=== PATIENT | female | born 1990 | race Caucasian/White ===

== ENCOUNTER 2017-03-22 13:39 | Emergency (ER) | payer OTHER ==
--- NOTE | 2017-03-22 15:59 | ED CLINICAL REPORT ---
Clinical Report - Physicians/Mid Levels [facility] [address] [place] [address] 03/22/2017 13:41 Patient: MALCOM FREEMAN Time Seen: 14:02; initial patient contact, initial documentation, patient care assumed. Arrived- By private vehicle. Historian- patient. HISTORY OF PRESENT ILLNESS Chief Complaint: VOMITING. This started about 4 weeks ago and is still present. It was gradual in onset and has been intermittent. The patient has had nausea and constipation. She has had vomiting. The vomiting has occurred several times and has been bilious. No feculent emesis, blood-tinged emesis, coffee-grounds emesis, frankly bloody emesis or unusually dark emesis. No diarrhea, black stools or bloody stools. She has had mild, intermittent abdominal pain (pain comes on with vomiting). The pain is described as located in the upper abdomen. Last bowel movement: a few days ago- thursday. The illness is described as moderate. (says she has been ill since started, and recently her dr has been slowly decreasing her depression/psych meds because they want her off them for the , due to side effects, she thinks she is withdrawing). Similar symptoms previously: None. Recent medical care: The patient was seen recently in the office. ( saw her dr last week and meds were decreased). REVIEW OF SYSTEMS No fever, dark urine, abnormal bleeding, chest pain or difficulty breathing. No fainting episodes. She has had difficulty with urination (decreased uop). No burning or pain with urination or difficulty during or after urination. No urgency or frequency of urination. Currently : In 1st trimester. G 2. P 1. All systems otherwise negative, except as recorded above. PAST HISTORY See nurses notes. PROBLEMS: Depressive disorder . Fibromyalgia. . --13:58 Oralia Baptiste R.N. ADDITIONAL SURGERIES: Carpal Tunnel Surgery. --13:58 Oralia Baptiste R.N. SOCIAL HISTORY Never smoker. Occasional alcohol use. History of occasional drug use: marijuana. Recently used drugs days ago. Is not under influence in ED. No recent travel. Is a local resident. FAMILY HISTORY Negative. ADDITIONAL NOTES The nursing notes have been reviewed with agreement regarding the chief complaint, HPI, ROS, PMH and patient medications and allergies. PHYSICAL EXAM Vital Signs: 03/22/2017 13:55 BP: 152/71. HR: 82. RR: 20. O2 saturation: 100%. Temp: 98.2 F. Pain level now: 10. Have been reviewed as normal and appear to be correct. Appearance: Alert. Oriented X3. No acute distress. Eyes: Pupils equal, round and reactive to light. Eyes normal inspection. ENT: Pharynx normal. Neck: Normal inspection. Neck supple. CVS: Normal heart rate and rhythm. Heart sounds normal. Pulses normal. Respiratory: No respiratory distress. Breath sounds normal. Abdomen: Soft and nontender. Bowel sounds normal. No organomegaly. No mass. Back: Normal inspection. Skin: Skin warm and dry. Normal skin color. No rash. Normal skin turgor. Extremities: Extremities exhibit normal ROM. No lower extremity edema. Neuro: Oriented X 3. No motor deficit. No sensory deficit. LABS, X-RAYS, AND EKG Laboratory Tests: UA-Culture if indicated: (AUDIE: 03/22/2017 15:20) ( [facility] [place] 03/22/2017 15:50) IP Test Result Flag Units (Reference) URINE COLOR YELLOW URINE APPEARANCE CLEAR URINE GLUCOSE NEGATIVE (NEGATIVE) URINE KETONE 3+ (NEGATIVE) URINE SPECIFIC GRAVITY 1.025 (1.010-1.030) URINE PH 6.0 (5.0-8.0) URINE PROTEIN TRACE (NEGATIVE) URINE UROBILINOGEN 0.2 EU/dL (0.2-1.0) URINE NITRITE NEGATIVE (NEGATIVE) URINE BLOOD NEGATIVE (NEGATIVE) URINE LEUK ESTERASE NEGATIVE (NEGATIVE) CBC w Diff: (AUDIE: 03/22/2017 14:10) ( MsgRcvd 03/22/2017 14:30) Final results Test Result Flag Units (Reference) WHITE BLOOD COUNT 10.7 K/uL (4.5-11.5) RED BLOOD COUNT 5.15 M/uL (4.00-5.20) HEMOGLOBIN 12.3 gm/dL (12.0-16.0) HEMATOCRIT 38.7 % (36.0-46.0) MEAN CELL VOLUME 75 L fL (80-100) MEAN CORPUSCULAR HGB 24 L pg (26-34) MEAN CORPUSCULAR HGB CONC 32 g/dL (31-37) RED CELL DISTRIBUTION WIDTH 14.8 % (11.6-14.8) PLATELET COUNT 321 K/uL (150-400) NEUTROPHIL % 81.3 H % (50-75) LYMPH % 13.3 L % (25-40) MONO % 4.5 % (3-14) EOSINOPHIL % 0.8 % (0-4) BASOPHIL % 0.1 % (0-2) CMP: (AUDIE: 03/22/2017 14:10) ( MsgRcvd 03/22/2017 15:12) Final results Test Result Flag Units (Reference) GLUCOSE 88 mg/dL (70-110) BUN 11 mg/dL (7-18) CREATININE 0.8 mg/dL (0.6-1.3) Estimated GFR >60 mL/min Estimated GFR- >60 mL/min Note: Persistent reduction over 3 months in eGFR<60 mL/min/1.73 m2 defines CKD. Patients with eGFR values>=60 mL/min/1.73 m2 may also have CKD if evidence ofpersistent proteinuria. Additional information may be foundat www.[email or web address].org. SODIUM 139 mmol/L (136-145) POTASSIUM 4.1 mmol/L (3.5-5.1) CHLORIDE 102 mmol/L (98-107) CARBON DIOXIDE 22 mmol/L (21-32) CALCIUM 9.2 mg/dL (8.5-10.1) TOTAL PROTEIN 8.2 g/dL (6.4-8.2) ALBUMIN 3.7 g/dL (3.3-5.0) BILIRUBIN, TOTAL 0.4 mg/dL (0.0-1.0) ALKALINE PHOSPHATASE 87 U/L (46-116) AST (SGOT) 21 U/L (15-37) ALT (SGPT) 50 U/L (12-78) LIPASE 113 U/L (73-393) AMYLASE 41 U/L (25-115) BETA HCG, QUANTITATIVE 77476 mIU/mL REFERENCE RANGE:Adult Males: <2 mIU/mLNon- Females: <6 mIU/mL Females:Approximate Approximate hCGGestational Age Range (mIU/mL) 0-1 week 0-501-2 weeks 40-3002-3 weeks 100-59990-5 weeks 500-34689-9 months 5,000-200,0002-3 months 10,000-100,0002nd trimester 3,000-50,0003rd trimester 1,000-50,000 . PROGRESS AND PROCEDURES Patient counseled in person regarding the patient's stable condition, test results and diagnosis. 15:51. Differential Diagnosis: I considered gastritis, peptic ulcer disease, gastroesophageal reflux disease, gastroparesis, Crohn's disease, ulcerative colitis, small bowel obstruction, colonic obstruction, colon cancer, gastroenteritis, cholecystitis, pancreatitis, viral syndrome, enterocolitis, urinary tract infection, hepatitis, sepsis, and psychogenic etiology as a possible cause of vomiting in this patient. This is a partial list of diagnoses considered. Above considerations are based on history, physical exam, reassessment and laboratory data. Differential diagnosis was discussed with patient. Disposition: Discharged home in good and improved condition (15:59). Condition: good and stable. CLINICAL IMPRESSION Intractable vomiting with nausea and dehydration. No volume depletion. Not bilious. INSTRUCTIONS Take clear liquids only (frequent sips) for the next 24 hours until better. May continue medications with sips only. Advance diet as tolerated. Avoid. Warnings: GENERAL WARNINGS: Return or contact your physician immediately if your condition worsens or changes unexpectedly, if not improving as expected, or if other problems arise. SPECIFICALLY, return if you develop pain in the abdomen or pelvis, fever, the inability to keep fluids down, blood in vomitus, blood in diarrhea, fainting or lightheadedness. Prescription Medications: Reglan 10 mg tablets: take 1 orally every 6 hours as needed for nausea or vomiting. Dispense fifteen (15). No refills. Follow-up: Follow up with your doctor in about two days even if well. Call for an appointment. Summary of care provided to patient. Understanding of the discharge instructions verbalized by patient. (Electronically signed by Ronna Cottrell A.R.N.P. 03/22/2017 16:33)
--- NOTE | 2017-03-22 15:59 | ED ORDER SUMMARY ---
..... Patient: MALCOM FREEMAN OrderSheet [facility] VisitID: [id number] [place] [address] 26y, F Registration Date/Time: 03/22/2017 ORDER SHEET Weight: 102.0 kg (stated) Allergies: Latex GENERAL ORDERS: CBC w Diff Urgent (14:12 03/22/2017 HBivens A.R.N.P.) (Ack 14:14 PWeiler ER Tech1) (14:15 MWinterer R.N.) CMP Urgent (14:12 03/22/2017 HBivens A.R.N.P.) (Ack 14:14 PWeiler ER Tech1) (14:15 MWinterer R.N.) UA-Culture if indicated Urgent (14:12 03/22/2017 HBivens A.R.N.P.) (Ack 14:14 PWeiler ER Tech1) (15:37 LNations ER Tech1) Amylase Urgent (14:12 03/22/2017 HBivens A.R.N.P.) (Ack 14:14 PWeiler ER Tech1) (14:15 MWinterer R.N.) Lipase Urgent (14:12 03/22/2017 HBivens A.R.N.P.) (Ack 14:14 PWeiler ER Tech1) (14:15 MWinterer R.N.) Serum Quantitative Urgent (14:12 03/22/2017 HBivens A.R.N.P.) (Ack 14:14 PWeiler ER Tech1) (14:15 MWinterer R.N.) MEDICATION ORDERS: IV FLUIDS: IV NS : initial bolus 1000 mL (1000 mL/hr), then none - (NOW) (14:12 03/22/2017 HBivens A.R.N.P.) (14:15 MWinterer R.N.) Zofran IV 4 mg (NOW) (14:03/22/2017 HBivens A.R.N.P.) (Ack 14:15 MWinterer R.N.) (14:17 MWinterer R.N.) IV Saline Lock (14:03/22/2017 HBivens A.R.N.P.) (14:14 keesha R.N.) Reglan IV 10 mg (NOW) (15:35 03/22/2017 HBivens A.R.N.P.) (Ack 16:01 SRoberts R.N.) (16:02 SRoberts R.N.) ORDER SHEET NOTES: [Electronically signed by Oralia Baptiste R.N. (16:12 03/22/2017)] [Electronically signed by Ronna CottrellR.N.P. (16:33 03/22/2017)] [Electronically locked/signed by Oralia Baptiste R.N. (16:12 03/22/2017)]
--- NOTE | 2017-03-22 15:59 | ED NURSING NOTES ---
Clinical Report - Nurses [facility] [address] [place] [address] 03/22/2017 13:41 Patient: MALCOM FREEMAN TRIAGE Triage time 13:55. Acuity: LEVEL 3. Chief Complaint: ABDOMINAL PAIN, NAUSEA and VOMITING and CHILLS and DECREASED VOIDING (Weaning off antidepressant.). Alert. No acute distress. SEPSIS SCREEN: Sepsis Screen: negative. Negative (no infection suspected/documented). LALO COMA SCORE: Lalo Coma Scale: 15- eyes open spontaneously (4); best verbal response- oriented x 4 (5); best motor response- obeys commands (6). --14:03 Oralia Baptiste R.N. 13:55 03/22/17. BP: 152/71. HR: 82. RR: 20. O2 saturation: 100%. Temp: 98.2 F. Pain level now: 03/02. --14:03 Oralia Baptiste R.N. Weight: 102 kg stated. Height/Length: 64 inches Per Patient. BMI: 38.6. --14:01 Oralia Baptiste R.N. Medications Zofran prn . --13:56 Oralia Baptiste R.N. VitB6 . --13:57 Oralia Baptiste R.N. Medication/allergy information source: the patient. --14:03 Oralia Baptiste R.N. Allergies Latex. --13:57 Oralia Baptiste R.N. History Arrived by private vehicle. Historian: patient and family. Accompanied by family. Primary physician ([facility]). This is a new problem and onset was gradual. (4 weeks ago 5-6 days ago, cut effecor in half, nausea and vomiting has gotten worse.). She has had nausea and vomiting. She has had constipation (last thu). She has had intermittent abdominal pain (with the vomiting). The pain is described as located in the upper abdomen. Treatment MEMORANDUM STATEMENT CLERK: (zofran). PAST MEDICAL HX: Immunizations: up-to-date. Last normal menstrual period- Nov 06 EDt. 2. Para 1. Abortions 0. SOCIAL HX: Never smoker. History of drug use: marijuana. Recently used drugs days ago. No alcohol use. No recent travel. No known contact with a sick individual. ABUSE ASSESSMENT: No report of abuse. FALL RISK ASSESSMENT: Fall risk assessment completed. No fall risk identified. NUTRITIONAL RISK ASSESSMENT: The nutritional risk assessment revealed no deficiencies. FUNCTIONAL ASSESSMENT: Functional assessment: no impairments noted. LEARNING NEEDS ASSESSMENT: The learning needs assessment revealed no barriers. --14:03 Oralia Baptiste R.N. PROBLEMS: Depressive disorder . Fibromyalgia. UC. --13:58 Oralia Baptiste R.N. ADDITIONAL SURGERIES: Carpal Tunnel Surgery. --13:58 Oralia Baptiste R.N. Interventions ID band on patient. To room. --14:03 Oralia Baptiste R.N. PHYSICAL ASSESSMENT Ambulatory to room. Patient gowned. GENERAL / NEURO / PSYCH: Alert. Oriented X 4. Appears anxious. HEENT: Mucous membranes are pink. RESPIRATORY: Respirations not labored. CVS: Capillary refill less than 2 seconds. GI / : The patient has had nausea. Abdominal tenderness in the upper abdomen. No emesis noted. ( "No voiding since thursday"). SKIN: Skin is warm and dry. --14:03 Oralia Baptiste R.N. NURSING PROGRESS NOTES Patient gowned. Head of bed elevated. Two patient identifiers checked. Call light placed in reach. Side rails up x 1. Bed placed in lowest position. Brakes of bed on. Patient ready for evaluation. --14:04 Oralia Baptiste R.N. 14:14 03/22/2017 Site #1 started via IV in the right antecubital space with an 20g angiocath, with aseptic technique and good blood return; one attempt. Blood drawn: rainbow set. Labeled in the presence of the patient and sent to the lab. --14:14 Aixa Sharp R.N. 14:15 03/22/2017 Started bag #1 1000 mL IV Fluids IV NS (Saline); at 999 mL/hr over 1 hour(s) via site #1 via IV pump. Allergies verified and confirmed 5 rights. IV patency established. IV site checked: no pain, redness, or swelling. IV flushed thoroughly pre- and post-medication administration. --14:15 Aixa Sharp R.N. 14:17 03/22/2017 Zofran (Ondansetron HCl) IVP 4 mg given over 1 minute(s) via site #1. Allergies verified and confirmed 5 rights. IV patency established. IV site checked: no pain, redness, or swelling. IV flushed thoroughly pre- and post-medication administration. IVP given by RN. --14:17 Aixa Sharp R.N. 15:15 03/22/2017 IV Fluids IV NS Discontinued: bag #1 infused. Total amount infused: 1000 mL. IV patency established. IV site checked: no pain, redness, or swelling. IV flushed thoroughly. --15:15 Oralia Baptiste R.N. 15:16 03/22/2017 Zofran IVP Response: pain is improving. Symptoms have improved the patient feels better. --15:16 Oralia Baptiste R.N. Patient ID band checked for patient name and birthdate: patient confirmed. Instructions provided to collect clean catch urine and patient verbalized understanding. Clean catch urine collected with return of jack-colored urine; odor is normal; sample sent to lab for urinalysis and culture. Specimen labeled in the presence of the patient. --15:37 Adelina Longoria ER Tech1 15:35 03/22/2017 Reglan (Metoclopramide HCl) IVP 10 mg given. via site #1. Allergies verified and confirmed 5 rights. IV patency established. IV site checked: no pain, redness, or swelling. IV flushed thoroughly pre- and post-medication administration. IVP given by RN. --16:02 Oralia Baptiste R.N. DISPOSITION / DISCHARGE Condition at departure: improved. No learning barriers present. Discharge instructions provided and reviewed with the patient. Reviewed medication(s) side effects, precautions, dosing and course information. Prescription(s) given to the patient. Patient verbalized understanding. Written instructions provided in Pashto. The patient was discharged home and accompanied by spouse. She left the Emergency Department ambulatory and via private vehicle. Spouse driving. Medication list reviewed and validated. --16:11 Oralia Baptiste R.N. 16:10 03/22/17. BP: 111/58. HR: 65. RR: 18. O2 saturation: 98% on room air. Temp: deferred. Pain level now: 12/02. 15:09 03/22/17. BP: 113/59. HR: 72. RR: 20. O2 saturation: 99% on room air. Pain level now: 01/02. 13:55 03/22/17. BP: 152/71. HR: 82. RR: 20. O2 saturation: 100%. Temp: 98.2 F. Pain level now: 03/02. --16:11 Oralia Baptiste R.N. Locked/Released at 03/22/2017 16:12 by Oralia Baptiste R.N.
--- NOTE | 2017-03-22 15:59 | ED ORDER SUMMARY ---
..... Patient: MALCOM FREEMAN OrderSheet [facility] VisitID: [id number] [place] [address] 26y, F Registration Date/Time: 03/22/2017 ORDER SHEET Weight: 102.0 kg (stated) Allergies: Latex GENERAL ORDERS: CBC w Diff Urgent (14:12 03/22/2017 HBivens A.R.N.P.) (Ack 14:14 PWeiler ER Tech1) (14:15 MWinterer R.N.) CMP Urgent (14:12 03/22/2017 HBivens A.R.N.P.) (Ack 14:14 PWeiler ER Tech1) (14:15 MWinterer R.N.) UA-Culture if indicated Urgent (14:12 03/22/2017 HBivens A.R.N.P.) (Ack 14:14 PWeiler ER Tech1) (15:37 LNations ER Tech1) Amylase Urgent (14:12 03/22/2017 HBivens A.R.N.P.) (Ack 14:14 PWeiler ER Tech1) (14:15 MWinterer R.N.) Lipase Urgent (14:12 03/22/2017 HBivens A.R.N.P.) (Ack 14:14 PWeiler ER Tech1) (14:15 MWinterer R.N.) Serum Quantitative Urgent (14:12 03/22/2017 HBivens A.R.N.P.) (Ack 14:14 PWeiler ER Tech1) (14:15 MWinterer R.N.) MEDICATION ORDERS: IV FLUIDS: IV NS : initial bolus 1000 mL (1000 mL/hr), then none - (NOW) (14:12 03/22/2017 HBivens A.R.N.P.) (14:15 MWinterer R.N.) Zofran IV 4 mg (NOW) (14:03/22/2017 HBivens A.R.N.P.) (Ack 14:15 MWinterer R.N.) (14:17 MWinterer R.N.) IV Saline Lock (14:03/22/2017 HBivens A.R.N.P.) (14:14 keesha R.N.) Reglan IV 10 mg (NOW) (15:35 03/22/2017 HBivens A.R.N.P.) (Ack 16:01 SRoberts R.N.) (16:02 SRoberts R.N.) ORDER SHEET NOTES: [Electronically signed by Oralia Baptiste R.N. (16:12 03/22/2017)] [Electronically signed by Ronna CottrellR.N.P. (16:33 03/22/2017)] [Electronically locked/signed by Oralia Baptiste R.N. (16:12 03/22/2017)]
--- NOTE | 2017-03-22 16:33 | ED MAR SUMMARY ---
..... Medication Administration Record [facility] [address] [place] [address] Patient: MALCOM FREEMAN Visit ID: [id number] 26y, F Weight: 102.0 kg Height/Length: 64 in BMI: 38.6 ALLERGIES: Latex Start 14:15 03/22/2017 Aixa Sharp R.N., Stop 15:15 03/22/2017 Oralia Baptiste R.N. Medication Administered: IV NS (SALINE), Dose: IV Fluids over 1 hour(s), Rate: 999 mL/hr, Dispensed: 1000 mL bag, Site: #1 right AC. Medication Ordered: IV NS : initial bolus 1000 mL (1000 mL/hr), then none - (NOW). Given 14:17 03/22/2017 Aixa Sharp R.N. Medication Administered: ZOFRAN [IVP] (ONDANSETRON HCL), Dose: 4 mg IVP over 1 minute(s), Site: #1 right AC. Medication Ordered: Zofran IV 4 mg (NOW). Given 15:35 03/22/2017 Oralia Baptiste R.N. Medication Administered: REGLAN [IVP] (METOCLOPRAMIDE HCL), Dose: 10 mg IVP, Site: #1 right AC. Medication Ordered: Reglan IV 10 mg (NOW).
--- NOTE | 2017-03-22 16:33 | ED MED RECONCILIATION SUMMARY ---
Patient: MALCOM FREEMAN Medication Reconciliation Report [facility] VisitID: [id number] [address] [place] [address] 26y, F Registration Date/Time: 03/22/2017 Weight: 102.0 kg Height/Length: 64 in. BMI: 38.6 ALLERGIES: Latex The patient's Home Medications are listed below: THE FOLLOWING MEDICATIONS NEED TO BE RECONCILED: VitB6 Zofran prn The source(s) of the original Home Medication information: patient The following Medications were given to the patient in the Emergency Department: IV NS IV Fluids bolus 0, then 999 mL/hr, administered: 03/22/2017 2:15:00 PM Zofran [IVP] IVP 4 mg, administered: 03/22/2017 2:17:00 PM Reglan [IVP] IVP 10 mg, administered: 03/22/2017 3:35:00 PM The following Medications were prescribed to the patient: Reglan 10 mg tablets: take 1 orally every 6 hours as needed for nausea or vomiting. Dispense fifteen (15). No refills. -- Ronna Cottrell A.R.N.P.
--- NOTE | 2017-03-22 16:33 | ED MED RECONCILIATION SUMMARY ---
Patient: MALCOM FREEMAN Medication Reconciliation Report [facility] VisitID: [id number] [address] [place] [address] 26y, F Registration Date/Time: 03/22/2017 Weight: 102.0 kg Height/Length: 64 in. BMI: 38.6 ALLERGIES: Latex The patient's Home Medications are listed below: THE FOLLOWING MEDICATIONS NEED TO BE RECONCILED: VitB6 Zofran prn The source(s) of the original Home Medication information: patient The following Medications were given to the patient in the Emergency Department: IV NS IV Fluids bolus 0, then 999 mL/hr, administered: 03/22/2017 2:15:00 PM Zofran [IVP] IVP 4 mg, administered: 03/22/2017 2:17:00 PM Reglan [IVP] IVP 10 mg, administered: 03/22/2017 3:35:00 PM The following Medications were prescribed to the patient: Reglan 10 mg tablets: take 1 orally every 6 hours as needed for nausea or vomiting. Dispense fifteen (15). No refills. -- Ronna Cottrell A.R.N.P.
--- NOTE | 2017-03-22 16:33 | ED MAR SUMMARY ---
..... Medication Administration Record [facility] [address] [place] [address] Patient: MALCOM FREEMAN Visit ID: [id number] 26y, F Weight: 102.0 kg Height/Length: 64 in BMI: 38.6 ALLERGIES: Latex Start 14:15 03/22/2017 Aixa Sharp R.N., Stop 15:15 03/22/2017 Oralia Baptiste R.N. Medication Administered: IV NS (SALINE), Dose: IV Fluids over 1 hour(s), Rate: 999 mL/hr, Dispensed: 1000 mL bag, Site: #1 right AC. Medication Ordered: IV NS : initial bolus 1000 mL (1000 mL/hr), then none - (NOW). Given 14:17 03/22/2017 Aixa Sharp R.N. Medication Administered: ZOFRAN [IVP] (ONDANSETRON HCL), Dose: 4 mg IVP over 1 minute(s), Site: #1 right AC. Medication Ordered: Zofran IV 4 mg (NOW). Given 15:35 03/22/2017 Oralia Baptiste R.N. Medication Administered: REGLAN [IVP] (METOCLOPRAMIDE HCL), Dose: 10 mg IVP, Site: #1 right AC. Medication Ordered: Reglan IV 10 mg (NOW).
--- NOTE | 2017-03-22 16:33 | ED DISCHARGE INSTRUCTIONS ---
Patient: MALCOM FREEMAN General Instructions [facility] VisitID: [id number] [place] [address] 26y, F Registration Date/Time: 03/22/2017 Intractable vomiting with nausea and dehydration. No volume depletion. Not bilious. INSTRUCTIONS Take clear liquids only (frequent sips) for the next 24 hours until better. May continue medications with sips only. Advance diet as tolerated. Avoid. Warnings: GENERAL WARNINGS: Return or contact your physician immediately if your condition worsens or changes unexpectedly, if not improving as expected, or if other problems arise. SPECIFICALLY, return if you develop pain in the abdomen or pelvis, fever, the inability to keep fluids down, blood in vomitus, blood in diarrhea, fainting or lightheadedness. Prescription Medications: Reglan 10 mg tablets: take 1 orally every 6 hours as needed for nausea or vomiting. Dispense fifteen (15). No refills. Follow-up: Follow up with your doctor in about two days even if well. Call for an appointment. Summary of care provided to patient. Understanding of the discharge instructions verbalized by patient. ADDITIONAL INFORMATION Vomiting [6Yr-Adult] Vomiting is a common symptom that may be due to different causes. These include gastroenteritis ("stomach flu"), food poisoning and gastritis. There are other more serious causes of vomiting which may be hard to diagnose early in the illness. Therefore, it is important to watch for the warning signs listed below. The main danger from repeated vomiting is dehydration. This is due to excess loss of water and minerals from the body. When this occurs, body fluids must be replaced. Home Care: If symptoms are severe, rest at home for the next 24 hours. You may use acetaminophen (Tylenol) or ibuprofen (Motrin, Advil) to control fever, unless another medicine was prescribed. [NOTE : If you have chronic liver or kidney disease or ever had a stomach ulcer or GI bleeding, talk with your doctor before using these medicines.] (Aspirin should never be used in anyone under 18 years of age who is ill with a fever. It may cause severe liver damage.) Avoid tobacco and alcohol use, which may worsen your symptoms. If medicines for vomiting were prescribed, take as directed. Once vomiting stops, then follow these guidelines: During The First 12-24 Hours follow the diet below: FRUIT JUICES: Apple, grape juice, clear fruit drinks, and electrolyte replacement drinks. BEVERAGES: Soft drinks without caffeine; mineral water (plain or flavored), decaffeinated tea and coffee. SOUPS: Clear broth, consomm and bouillon DESSERTS: Plain gelatin, popsicles and fruit juice bars. As you feel better, you may add 6-8 ounces of yogurt per day. During The Next 24 Hours you may add the following to the above: Hot cereal, plain toast, bread, rolls, crackers Plain noodles, rice, mashed potatoes, chicken noodle or rice soup Unsweetened canned fruit (avoid pineapple), bananas Limit caffeine and chocolate. No spices or seasonings except salt. During The Next 24 Hours Gradually resume a normal diet, as you feel better and your symptoms lessen. Follow Up with your doctor as advised if you are not improving over the next 2-3 days. Get Prompt Medical Attention if any of the following occur: Constant right-sided lower abdominal pain or increasing general abdominal pain Continued vomiting (unable to keep liquids down) for 24 hours Frequent diarrhea (more than 5 times a day); blood (red or black color) or mucus in diarrhea Reduced urine output or extreme thirst Weakness, dizziness or fainting Unusually drowsy or confused Fever of 100.4F (38C) oral or higher, not better with fever medication Yellow color of the eyes or skin Clear Liquid Diet Clear liquids are any liquid that you can see through as well as those that are very easy to digest. This is used while the body is recovering from irritation or infection of the stomach or intestinal tract. It may also be used before special procedures or surgery. This diet is to be used no more than three days. You may include the following items. Adults Adults should drink a total of 23 quarts of liquid per day. It may be easier to drink small frequent servings rather than a few large ones. Liquids can include: Fruit juices.Strained orange juice or lemonade (no pulp), apple, grape and cranberry juice, clear fruit drinks, sports drinks Beverages.Sport drinks, sodas, mineral water (plain or flavored), tea, black coffee, liquid gelatin (add twice the recommended amount of water) Soups.Clear broth, consomm, bouillon Desserts.Plain gelatin, popsicles, fruit juice bars Children Over 2 years old The following liquids are acceptable for children over age 2: Fruit juices.Strained orange juice or lemonade (no pulp), apple, grape and cranberry juice, clear fruit drinks Beverages. Sports drinks, sodas, mineral water (plain or flavored), tea, liquid gelatin (add twice the recommended amount of water) Soups. Clear broth, consomm, bouillon Desserts. Plain gelatin, popsicles, fruit juice bars Children under 2 years old Oral rehydration fluids such are available at drug stores and most grocery stores without a prescription. [place] Diet A bland diet is used for patients with an upset stomach. It consists of foods that are mild and easy to digest. It is better to eat small frequent meals rather than three large meals a day. BEVERAGES OK: Fruit juices, non-caffeinated teas and coffee, non-carbonated laughlin AVOID: Carbonated beverage, caffeinated tea and coffee, all alcoholic beverages BREAD OK: Refined white, wheat or rye bread, mikel or soda crackers, [place] toast, plain rolls, bagels AVOID: Whole-grain bread CEREAL OK: Refined cereals: cooked or ready to eat AVOID: Whole grain cereals and granola, or those containing bran, seeds or nuts DESSERTS OK: Peanut butter and all others except those to "avoid" AVOID: Chocolate, cocoa, coconut, popcorn, nuts, seeds, jam, marmalade FRUITS OK: Canned, cooked, frozen or fresh fruits without seeds or tough skin AVOID: Olives, skin and seeds of fruit MEATS OK: All fresh or preserved meat, fish and fowl AVOID: Any that are prepared with those spices to "avoid" CHEESE & EGGS OK: Eggs, cottage cheese, cream cheese, other cheeses AVOID: All cheeses made with those spices to "avoid" POTATOES & PASTA OK: Potato, rice, macaroni, noodles, spaghetti AVOID: None SOUPS OK: All soups without heavy seasoning AVOID: Soups made with those spices to "avoid" VEGETABLES OK: Canned, cooked, fresh or frozen mildly flavored vegetables without seeds, skins or coarse fiber AVOID: Vegetables prepared with those spices to "avoid"; skin and seeds of vegetables and those with coarse fiber SPICES OK: Salt, lemon and [place] juice, vinegar, all extracts, yoshi, cinnamon, thyme, mace, allspice, paprika AVOID: Cooks powder, cloves, pepper, seed spices, garlic, gravy pickles, highly seasoned salad dressings Clear Liquid Diet Clear liquids are any liquid that you can see through as well as those that are very easy to digest. This is used while the body is recovering from irritation or infection of the stomach or intestinal tract. It may also be used before special procedures or surgery. This diet is to be used no more than three days. You may include the following items. Adults Adults should drink a total of 23 quarts of liquid per day. It may be easier to drink small frequent servings rather than a few large ones. Liquids can include: Fruit juices.Strained orange juice or lemonade (no pulp), apple, grape and cranberry juice, clear fruit drinks, sports drinks Beverages.Sport drinks, sodas, mineral water (plain or flavored), tea, black coffee, liquid gelatin (add twice the recommended amount of water) Soups.Clear broth, consomm, bouillon Desserts.Plain gelatin, popsicles, fruit juice bars Children Over 2 years old The following liquids are acceptable for children over age 2: Fruit juices.Strained orange juice or lemonade (no pulp), apple, grape and cranberry juice, clear fruit drinks Beverages. Sports drinks, sodas, mineral water (plain or flavored), tea, liquid gelatin (add twice the recommended amount of water) Soups. Clear broth, consomm, bouillon Desserts. Plain gelatin, popsicles, fruit juice bars Children under 2 years old Oral rehydration fluids such are available at drug stores and most grocery stores without a prescription. Metoclopramide Hydrochloride Oral tablet What is this medicine? METOCLOPRAMIDE (met oh kloe PRA mide) is used to treat the symptoms of gastroesophageal reflux disease (GERD) like heartburn. It is also used to treat people with slow emptying of the stomach and intestinal tract. How should I use this medicine? Take this medicine by mouth with a glass of water. Follow the directions on the prescription label. Take this medicine on an empty stomach, about 30 minutes before eating. Take your doses at regular intervals. Do not take your medicine more often than directed. Do not stop taking except on the advice of your doctor or health critical care paramedic. A special MedGuide will be given to you by the pharmacist with each prescription and refill. Be sure to read this information carefully each time. Talk to your rubber tire and tubes supervisor regarding the use of this medicine in children. Special care may be needed. What side effects may I notice from receiving this medicine? Side effects that you should report to your doctor or health critical care paramedic as soon as possible: allergic reactions like skin rash, itching or hives, swelling of the face, lips, or tongue abnormal production of milk in females breast enlargement in both males and females change in the way you walk difficulty moving, speaking or swallowing drooling, lip smacking, or rapid movements of the tongue excessive sweating fever involuntary or uncontrollable movements of the eyes, head, arms and legs irregular heartbeat or palpitations muscle twitches and spasms unusually weak or tired Side effects that usually do not require medical attention (report to your doctor or health critical care paramedic if they continue or are bothersome): change in sex drive or performance depressed mood diarrhea difficulty sleeping headache menstrual changes restless or nervous What may interact with this medicine? acetaminophen cyclosporine digoxin medicines for blood pressure medicines for diabetes, including insulin medicines for hay fever and other allergies medicines for depression, especially an Monoamine Oxidase Inhibitor (MAOI) medicines for Parkinson's disease, like levodopa medicines for sleep or for pain tetracycline What if I miss a dose? If you miss a dose, take it as soon as you can. If it is almost time for your next dose, take only that dose. Do not take double or extra doses. Where should I keep my medicine? Keep out of the reach of children. Store at room temperature between 20 and 25 degrees C (68 and 77 degrees F). Protect from light. Keep container tightly closed. Throw away any unused medicine after the expiration date. What should I tell my health care provider before I take this medicine? They need to know if you have any of these conditions: breast cancer depression diabetes heart failure high blood pressure kidney disease liver disease Parkinson's disease or a movement disorder pheochromocytoma seizures stomach obstruction, bleeding, or perforation an unusual or allergic reaction to metoclopramide, procainamide, sulfites, other medicines, foods, dyes, or preservatives or trying to get breast-feeding What should I watch for while using this medicine? It may take a few weeks for your stomach condition to start to get better. However, do not take this medicine for longer than 12 weeks. The longer you take this medicine, and the more you take it, the greater your chances are of developing serious side effects. If you are an elderly patient, a female patient, or you have diabetes, you may be at an increased risk for side effects from this medicine. Contact your doctor immediately if you start having movements you cannot control such as lip smacking, rapid movements of the tongue, involuntary or uncontrollable movements of the eyes, head, arms and legs, or muscle twitches and spasms. Patients and their families should watch out for worsening depression or thoughts of suicide. Also watch out for any sudden or severe changes in feelings such as feeling anxious, agitated, panicky, irritable, hostile, aggressive, impulsive, severely restless, overly excited and hyperactive, or not being able to sleep. If this happens, especially at the beginning of treatment or after a change in dose, call your doctor. Do not treat yourself for high fever. Ask your doctor or health critical care paramedic for advice. You may get drowsy or dizzy. Do not drive, use machinery, or do anything that needs mental alertness until you know how this drug affects you. Do not stand or sit up quickly, especially if you are an older patient. This reduces the risk of dizzy or fainting spells. Alcohol can make you more drowsy and dizzy. Avoid alcoholic drinks. You have been given the following additional information: Vomiting (6Y-Adult) Diet, Clear Liquid Diet, [place] (Adult) Diet, Clear Liquid Metoclopramide Hydrochloride Oral tablet (Electronically signed by Ronna Cottrell A.R.N.P. 03/22/2017 16:33)
== END 2017-03-22 16:08 | disposition home or self-care (01) ==
LOC: ED SRH 13:39
DX: O21.1 Hyperemesis gravidarum with metabolic disturbance (principal); E86.0 Dehydration; Z79.899 Other long term (current) drug therapy; Z3A.00 Weeks of gestation of pregnancy not specified
CPT/HCPCS: 90004; 90100; 90197; 92235; 92530; 95059

== ENCOUNTER 2017-03-24 14:03 | Emergency (ER) | payer OTHER ==
--- NOTE | 2017-03-24 16:45 | ED CLINICAL REPORT ---
Clinical Report - Physicians/Mid Levels [facility] [address] [place] [address] 03/24/2017 14:03 Patient: MALCOM FREEMAN Time Seen: 14:15 Mar 24 2017. Arrived- By private vehicle. Historian- patient. HISTORY OF PRESENT ILLNESS Chief Complaint: VOMITING. This started 2 days and is still present. The patient has had nausea and vomiting. No diarrhea, black stools or bloody stools. Has not recently been camping or on antibiotics. The illness is described as mild. ( 9.5 weeks IUP Reports recently has stopped Effexor, has had chills and aches and fatigue increase of her depression symptoms, has appointment mid March with her OB, was asked to stop Effexor due to side effects of Patient reports inability to eat due to emesis feeling shaky at times. denies any vaginal bleeding or loss of fluid. Denies urgency or frequency. Reports abdominal cramping off and on.). Similar symptoms previously: Recent medical care: The patient was seen recently in the emergency department. REVIEW OF SYSTEMS No fever, muscle aches, dark urine or chest pain. All systems otherwise negative, except as recorded above. PAST HISTORY Problems: . Depressive disorder . Fibromyalgia. UC. Additional Surgeries: Carpal Tunnel Surgery. Medications: VitB6 . Zofran prn . Allergies: Latex. SOCIAL HISTORY Never smoker. No alcohol use. ADDITIONAL NOTES The nursing notes have been reviewed. PHYSICAL EXAM Vital Signs: 03/24/2017 14:07 BP: 140/78. HR: 94. RR: 15. O2 saturation: 100%. Temp: 98.5 F. Appearance: Alert. CVS: Normal heart rate and rhythm. Heart sounds normal. Respiratory: No respiratory distress. Breath sounds normal. No accessory muscle use or decreased air movement. LABS, X-RAYS, AND EKG Laboratory Tests: UA-Culture if indicated: (AUDIE: 03/24/2017 14:10) ( MsgRcvd 03/24/2017 14:49) Final results Test Result Flag Units (Reference) URINE COLOR YELLOW URINE APPEARANCE SL CLOUDY URINE GLUCOSE NEGATIVE (NEGATIVE) URINE BILIRUBIN NEGATIVE (NEGATIVE) URINE BILIRUBIN ICTOTEST NEGATIVE (NEGATIVE) URINE KETONE 3+ (NEGATIVE) URINE SPECIFIC GRAVITY >= 1.030 (1.010-1.030) URINE PH 6.0 (5.0-8.0) URINE PROTEIN TRACE (NEGATIVE) URINE UROBILINOGEN 0.2 EU/dL (0.2-1.0) URINE NITRITE NEGATIVE (NEGATIVE) URINE BLOOD TRACE-INTACT (NEGATIVE) URINE LEUK ESTERASE NEGATIVE (NEGATIVE) URINE RBC 0-1 rbc/hpf (0-1) URINE WBC 3-5 wbc/hpf (0-1) URINE EPITHELIAL CELLS 3-5 EPI/hpf (0-5) URINE BACTERIA FEW (1+) (NONE SEEN) URINE COMMENT CULT NOT INDICATED 2+ MUCOUSURINE CULTURES ARE SET-UP BASED ON THE FOLLOWING CRITERIA:POSITIVE NITRITEPOSITIVE LEUKOCYTE ESTERASEGREATER THAN 10 WHITE BLOOD CELLSMODERATE (2+) OR GREATER BACTERIA CBC w Diff: (AUDIE: 03/24/2017 14:40) ( MsgRcvd 03/24/2017 14:50) Final results Test Result Flag Units (Reference) WHITE BLOOD COUNT 11.1 K/uL (4.5-11.5) RED BLOOD COUNT 5.09 M/uL (4.00-5.20) HEMOGLOBIN 12.3 gm/dL (12.0-16.0) HEMATOCRIT 38.4 % (36.0-46.0) MEAN CELL VOLUME 75 L fL (80-100) MEAN CORPUSCULAR HGB 24 L pg (26-34) MEAN CORPUSCULAR HGB CONC 32 g/dL (31-37) RED CELL DISTRIBUTION WIDTH 14.6 % (11.6-14.8) PLATELET COUNT 315 K/uL (150-400) NEUTROPHIL % 79.4 H % (50-75) LYMPH % 15.5 L % (25-40) MONO % 4.0 % (3-14) EOSINOPHIL % 0.6 % (0-4) BASOPHIL % 0.5 % (0-2) . PROGRESS AND PROCEDURES Course of Care: Dehydration with urine with minimal bacteria with otherwise no symptoms negative leukocyte Estrace or nitrate. Patient is otherwise very stable discussed use of Tylenol Benadryl as needed, and rescheduled her appointment for earlier. No vaginal bleeding. No distress abdomen is soft nontender. No signs of guarding or peritoneal signs, concern for any other acute abdominal surgical pathology. Patient is stable. Patient/family counseled. Disposition: Discharged. CLINICAL IMPRESSION Vomiting with nausea, dehydration and volume depletion. Early, first trimester intrauterine . Withdrawal of medication complicated by . INSTRUCTIONS Drink plenty of fluids. (( Appt. made for pt with [facility] on [address] for April 01 at 0330) Please rotate of zofran/ reglan, take one then the other in 4 hours to best regulate your symptoms, in addition may take benadryl every 6 hours to help with your symptoms. I would also strongly urge you to take Tylenol for any pains you may have. Maintain a primarily liquid diet). Warnings: Further evaluation is necessary. Prescription Medications: Zofran (orally disintegrating tablets) 4 mg: take 1 orally every 8 hours for 3 days as needed for nausea. Dispense fifteen (15). No refill. Substitution is permissible. Reglan 10 mg tablets: take 1 orally every 8 hours for 3 days as needed for nausea or vomiting. Dispense fifteen (15). No refills. OTC Medications: Take acetaminophen (Tylenol, Datril, etc.) and Benadryl according to label instructions. Available over the counter. Follow-up: Follow up with an manager beverage. Understanding of the discharge instructions verbalized by patient. (Electronically signed by Denisha Doty P.A.-C 03/24/2017 17:17)
--- NOTE | 2017-03-24 16:45 | ED ORDER SUMMARY ---
..... Patient: MALCOM FREEMAN OrderSheet [facility] VisitID: [id number] [place] [address] 26y, F Registration Date/Time: 03/24/2017 ORDER SHEET Weight: 99.7 kg (stated) Allergies: Latex GENERAL ORDERS: CBC w Diff Urgent (14:03/24/2017 EKoroleva P.A.-C) (Ack 14:28 PWeiler ER Tech1) (14:38 TLewis R.N.) UA-Culture if indicated Urgent (14:03/24/2017 EKoroleva P.A.-C) (Ack 14:28 PWeiler ER Tech1) (14:38 TLewis R.N.) MEDICATION ORDERS: IV FLUIDS: IV NS : initial bolus 1000 mL (1000 mL/hr), then 1000 mL/hr for X1 (NOW); Tang (14:03/24/2017 EKoroleva P.A.-C) (14:47 TLewis R.N.) Reglan IV 10 mg (NOW) (14:03/24/2017 EKoroleva P.A.-C) (14:47 TLewis R.N.) Zofran IV 8 mg (NOW) (15:03/24/2017 EKoroleva P.A.-C) (15:53 TLewis R.N.) Benadryl IV 50 mg (NOW) (15:03/24/2017 EKoroleva P.A.-C) (15:54 TLewis R.N.) ORDER SHEET NOTES: [Electronically signed by Smith Hdz R.N. (17:03 03/24/2017)] [Electronically signed by Denisha DotyAYoli-C (17:03/24/2017)] [Electronically locked/signed by Smith Hdz R.N. (17:03/24/2017)]
--- NOTE | 2017-03-24 16:45 | ED ORDER SUMMARY ---
..... Patient: MALCOM FREEMAN OrderSheet [facility] VisitID: [id number] [place] [address] 26y, F Registration Date/Time: 03/24/2017 ORDER SHEET Weight: 99.7 kg (stated) Allergies: Latex GENERAL ORDERS: CBC w Diff Urgent (14:03/24/2017 EKoroleva P.A.-C) (Ack 14:28 PWeiler ER Tech1) (14:38 TLewis R.N.) UA-Culture if indicated Urgent (14:03/24/2017 EKoroleva P.A.-C) (Ack 14:28 PWeiler ER Tech1) (14:38 TLewis R.N.) MEDICATION ORDERS: IV FLUIDS: IV NS : initial bolus 1000 mL (1000 mL/hr), then 1000 mL/hr for X1 (NOW); Tang (14:03/24/2017 EKoroleva P.A.-C) (14:47 TLewis R.N.) Reglan IV 10 mg (NOW) (14:03/24/2017 EKoroleva P.A.-C) (14:47 TLewis R.N.) Zofran IV 8 mg (NOW) (15:03/24/2017 EKoroleva P.A.-C) (15:53 TLewis R.N.) Benadryl IV 50 mg (NOW) (15:03/24/2017 EKoroleva P.A.-C) (15:54 TLewis R.N.) ORDER SHEET NOTES: [Electronically signed by Smith Hdz R.N. (17:03 03/24/2017)] [Electronically signed by Denisha DotyAYoli-C (17:03/24/2017)] [Electronically locked/signed by Smith Hdz R.N. (17:03/24/2017)]
--- NOTE | 2017-03-24 16:45 | ED NURSING NOTES ---
Clinical Report - Nurses [facility] [address] [place] [address] 03/24/2017 14:03 Patient: MALCOM FREEMAN TRIAGE Triage time 14:11. Acuity: LEVEL 3. Chief Complaint: ABDOMINAL PAIN, NAUSEA and VOMITING. SANDRA COMA SCORE: [place] Coma Scale: 15- eyes open spontaneously (4); best verbal response- oriented x 4 (5); best motor response- obeys commands (6). --14:18 Smith Hdz R.N. 14:07 03/24/17. BP: 140/78. HR: 94. RR: 15. O2 saturation: 100%. Temp: 98.5 F. Pain level now 0/10. --14:18 Smith Hdz R.N. Weight: 99.7 kg stated. Height/Length: 64 inches Per Patient. BMI: 37.8. --14:17 Smith Hdz R.N. Medications VitB6 . Zofran prn . --14:16 Smith Hdz R.N. Medication/allergy information source: the patient. --14:18 Smith Hdz R.N. Allergies Latex. --14:16 Smith Hdz R.N. History Arrived by private vehicle. Historian: patient. Accompanied by family. Primary physician ([facility]). Onset. (since thrusday). ( Pt is 9 weeks preg. Pt has not seen an OBGYN as of yet. Pt was seen here thursday for n/v. Pt had fluids and labs. Pt is being winged off Effexor. She is taking 50 to 60mg of Effexor. Pt denies any pain at this time.). She has had nausea, vomiting and constipation. 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 PAST MEDICAL HX: Currently : 9 weeks. SOCIAL HX: Never smoker. History of occasional drug use: marijuana. (medical for depression). No alcohol use. --14:18 Smith Hdz R.N. PROBLEMS: Vomiting. Depressive disorder . Fibromyalgia. . --14:16 Smith Hdz R.N. Interventions ID band on patient. To treatment room. --14:18 Smith Hdz R.N. PHYSICAL ASSESSMENT ( Pt is 9 weeks preg. Here for n/v and is constipated. Last bm was a few days ago, she is not sure. pt is not having abdominal pain at this time.). GENERAL / NEURO / PSYCH: Alert. Oriented X 4. Appears in no acute distress. HEENT: Mucous membranes are pink. RESPIRATORY: Respirations not labored. Breath sounds within normal limits. CVS: Normal sinus rhythm noted. Capillary refill less than 2 seconds. GI / : Abdomen soft and nontender. Bowel sounds within normal limits. A scant amount of thin and yellow vaginal discharge present. Stool color normal. ( Pt denies any pain on urination.). SKIN: Skin is warm and dry. --14:20 Smith Hdz R.N. NURSING PROGRESS NOTES Patient gowned. Two patient identifiers checked. Call light placed in reach. Side rails up x 1. Bed placed in lowest position. Brakes of bed on. --14:20 Smith Hdz R.N. 14:39 03/24/2017 Site #1 started via IV in the right antecubital space with an 20g angiocath, with aseptic technique and good blood return; one attempt. Blood drawn: rainbow set. Labeled in the presence of the patient and sent to the lab. Saline lock flushed with 10 mL saline. --14:39 Smith Hdz R.N. 14:43 03/24/2017 Reglan (Metoclopramide HCl) IVP 10 mg given over 1 minute(s) via site #1. Allergies verified and confirmed 5 rights. IV patency established. IV site checked: no pain, redness, or swelling. IV flushed thoroughly pre- and post-medication administration. IVP given by RN. --14:47 Smith Hdz R.N. 14:47 03/24/2017 Started bag #1 1000 mL IV Fluids IV NS (Saline); at 1000 mL/hr over 1 hour(s) via site #1 via IV pump. Allergies verified and confirmed 5 rights. IV patency established. IV site checked: no pain, redness, or swelling. IV flushed thoroughly pre- and post-medication administration. --14:47 Smith Hdz R.N. ( Appt. made for pt with [facility] on [address] for April 01 at 0330). --15:06 Adelina Longoria ER TechSebas 15:53 03/24/2017 Zofran (Ondansetron HCl) IVP 8 mg given over 1 minute(s) via site #1. Allergies verified and confirmed 5 rights. IV patency established. IV site checked: no pain, redness, or swelling. IV flushed thoroughly pre- and post-medication administration. IVP given by RN. --15:53 Smith Hdz R.N. 15:54 03/24/2017 Benadryl (DiphenhydrAMINE HCl) IVP 50 mg given over 1 minute(s) via site #1. Allergies verified, confirmed 5 rights and sedative warning given to the patient. IV patency established. IV site checked: no pain, redness, or swelling. IV flushed thoroughly pre- and post-medication administration. IVP given by RN. --15:54 Smith Hdz R.N. 16:22 03/24/2017 IV Fluids IV NS Discontinued: bag #1 completed. Total amount infused: 1000 mL. IV patency established. IV site checked: no pain, redness, or swelling. IV flushed thoroughly. --16:22 Smith Hdz R.N. ( Pt was given water for a po challenge. Pt has no vomited since she has been here. Pt does not feel nausea after drinking the water.). --16:41 Smith Hdz R.N. 16:39 03/24/17. BP: 112/50. HR: 81. RR: 15. O2 saturation: 100%. Pain level now 0/10. --16:41 Smith Hdz R.N. 16:59 03/24/2017 Site #1 removed upon discharge. Catheter intact. Bandaid applied. --16:59 Smith Hdz R.N. 16:59 03/24/17. BP: 117/55. HR: 80. RR: 17. O2 saturation: 100%. Pain level now 0/10. --17:00 Smith Hdz R.N. DISPOSITION / DISCHARGE Departure time: 17:01. Condition at departure: improved. No learning barriers present. Discharge instructions provided and reviewed with the patient. Reviewed medication(s) side effects, precautions, dosing and course information. Prescription(s) given to the patient (joselito regana rosa datril). Reviewed referral to an product safety and standards engineer (april 01). Patient verbalized understanding. Written instructions provided in Pakistani. The patient was discharged by the physician permit review assistant. She was discharged home and accompanied by spouse. She left the Emergency Department ambulatory and via private vehicle. Spouse driving. --17:03 Smith Hdz R.N. Locked/Released at 03/24/2017 17:03 by Smith Hdz R.N.
--- NOTE | 2017-03-24 16:45 | ED NURSING NOTES ---
Clinical Report - Nurses [facility] [address] [place] [address] 03/24/2017 14:03 Patient: MALCOM FREEMAN TRIAGE Triage time 14:11. Acuity: LEVEL 3. Chief Complaint: ABDOMINAL PAIN, NAUSEA and VOMITING. SANDRA COMA SCORE: [place] Coma Scale: 15- eyes open spontaneously (4); best verbal response- oriented x 4 (5); best motor response- obeys commands (6). --14:18 Smith Hdz R.N. 14:07 03/24/17. BP: 140/78. HR: 94. RR: 15. O2 saturation: 100%. Temp: 98.5 F. Pain level now 0/10. --14:18 Smith Hdz R.N. Weight: 99.7 kg stated. Height/Length: 64 inches Per Patient. BMI: 37.8. --14:17 Smith Hdz R.N. Medications VitB6 . Zofran prn . --14:16 Smith Hdz R.N. Medication/allergy information source: the patient. --14:18 Smith Hdz R.N. Allergies Latex. --14:16 Smith Hdz R.N. History Arrived by private vehicle. Historian: patient. Accompanied by family. Primary physician ([facility]). Onset. (since thrusday). ( Pt is 9 weeks preg. Pt has not seen an OBGYN as of yet. Pt was seen here thursday for n/v. Pt had fluids and labs. Pt is being winged off Effexor. She is taking 50 to 60mg of Effexor. Pt denies any pain at this time.). She has had nausea, vomiting and constipation. 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 PAST MEDICAL HX: Currently : 9 weeks. SOCIAL HX: Never smoker. History of occasional drug use: marijuana. (medical for depression). No alcohol use. --14:18 Smith Hdz R.N. PROBLEMS: Vomiting. Depressive disorder . Fibromyalgia. . --14:16 Smith Hdz R.N. Interventions ID band on patient. To treatment room. --14:18 Smith Hdz R.N. PHYSICAL ASSESSMENT ( Pt is 9 weeks preg. Here for n/v and is constipated. Last bm was a few days ago, she is not sure. pt is not having abdominal pain at this time.). GENERAL / NEURO / PSYCH: Alert. Oriented X 4. Appears in no acute distress. HEENT: Mucous membranes are pink. RESPIRATORY: Respirations not labored. Breath sounds within normal limits. CVS: Normal sinus rhythm noted. Capillary refill less than 2 seconds. GI / : Abdomen soft and nontender. Bowel sounds within normal limits. A scant amount of thin and yellow vaginal discharge present. Stool color normal. ( Pt denies any pain on urination.). SKIN: Skin is warm and dry. --14:20 Smith Hdz R.N. NURSING PROGRESS NOTES Patient gowned. Two patient identifiers checked. Call light placed in reach. Side rails up x 1. Bed placed in lowest position. Brakes of bed on. --14:20 Smith Hdz R.N. 14:39 03/24/2017 Site #1 started via IV in the right antecubital space with an 20g angiocath, with aseptic technique and good blood return; one attempt. Blood drawn: rainbow set. Labeled in the presence of the patient and sent to the lab. Saline lock flushed with 10 mL saline. --14:39 Smith Hdz R.N. 14:43 03/24/2017 Reglan (Metoclopramide HCl) IVP 10 mg given over 1 minute(s) via site #1. Allergies verified and confirmed 5 rights. IV patency established. IV site checked: no pain, redness, or swelling. IV flushed thoroughly pre- and post-medication administration. IVP given by RN. --14:47 Smith Hdz R.N. 14:47 03/24/2017 Started bag #1 1000 mL IV Fluids IV NS (Saline); at 1000 mL/hr over 1 hour(s) via site #1 via IV pump. Allergies verified and confirmed 5 rights. IV patency established. IV site checked: no pain, redness, or swelling. IV flushed thoroughly pre- and post-medication administration. --14:47 Smith Hdz R.N. ( Appt. made for pt with [facility] OB on [address] for April 01 at 0330). --15:06 Adelina Longorai ER TechSebas 15:53 03/24/2017 Zofran (Ondansetron HCl) IVP 8 mg given over 1 minute(s) via site #1. Allergies verified and confirmed 5 rights. IV patency established. IV site checked: no pain, redness, or swelling. IV flushed thoroughly pre- and post-medication administration. IVP given by RN. --15:53 Smith Hdz R.N. 15:54 03/24/2017 Benadryl (DiphenhydrAMINE HCl) IVP 50 mg given over 1 minute(s) via site #1. Allergies verified, confirmed 5 rights and sedative warning given to the patient. IV patency established. IV site checked: no pain, redness, or swelling. IV flushed thoroughly pre- and post-medication administration. IVP given by RN. --15:54 Smith Hdz R.N. 16:22 03/24/2017 IV Fluids IV NS Discontinued: bag #1 completed. Total amount infused: 1000 mL. IV patency established. IV site checked: no pain, redness, or swelling. IV flushed thoroughly. --16:22 Smith Hdz R.N. ( Pt was given water for a po challenge. Pt has no vomited since she has been here. Pt does not feel nausea after drinking the water.). --16:41 Smith Hdz R.N. 16:39 03/24/17. BP: 112/50. HR: 81. RR: 15. O2 saturation: 100%. Pain level now 0/10. --16:41 Smith Hdz R.N. 16:59 03/24/2017 Site #1 removed upon discharge. Catheter intact. Bandaid applied. --16:59 Smith Hdz R.N. 16:59 03/24/17. BP: 117/55. HR: 80. RR: 17. O2 saturation: 100%. Pain level now 0/10. --17:00 Smith Hdz R.N. DISPOSITION / DISCHARGE Departure time: 17:01. Condition at departure: improved. No learning barriers present. Discharge instructions provided and reviewed with the patient. Reviewed medication(s) side effects, precautions, dosing and course information. Prescription(s) given to the patient (joselito regana rosa datril). Reviewed referral to an structural shop helper (april 01). Patient verbalized understanding. Written instructions provided in Polish. The patient was discharged by the physician autopsy assistant. She was discharged home and accompanied by spouse. She left the Emergency Department ambulatory and via private vehicle. Spouse driving. --17:03 Smith Hdz R.N. Locked/Released at 03/24/2017 17:03 by Smith Hdz R.N.
--- NOTE | 2017-03-24 17:17 | ED MED RECONCILIATION SUMMARY ---
Patient: MALCOM FREEMAN Medication Reconciliation Report [facility] VisitID: [id number] [address] [place] [address] 26y, F Registration Date/Time: 03/24/2017 Weight: 99.7 kg Height/Length: 64 in. BMI: 37.8 ALLERGIES: Latex The patient's Home Medications are listed below: THE FOLLOWING MEDICATIONS NEED TO BE RECONCILED: VitB6 Zofran prn The source(s) of the original Home Medication information: patient The following Medications were given to the patient in the Emergency Department: Reglan [IVP] IVP 10 mg, administered: 03/24/2017 2:43:00 PM IV NS IV Fluids bolus 0, then 1000 mL/hr, administered: 03/24/2017 2:47:00 PM Zofran [IVP] IVP 8 mg, administered: 03/24/2017 3:53:00 PM Benadryl [IVP] IVP 50 mg, administered: 03/24/2017 3:54:00 PM The following Medications were prescribed to the patient: Take acetaminophen (Tylenol, Datril, etc.) and Benadryl according to label instructions. Available over the counter. -- Denisha Doty, P.A.-Lyndsay Zofran (orally disintegrating tablets) 4 mg: take 1 orally every 8 hours for 3 days as needed for nausea. Dispense fifteen (15). No refill. Substitution is permissible. -- Denisha Doty, P.A.-Lyndsay Reglan 10 mg tablets: take 1 orally every 8 hours for 3 days as needed for nausea or vomiting. Dispense fifteen (15). No refills. -- Denisha Doty P.A.-Lyndsay
--- NOTE | 2017-03-24 17:17 | ED DISCHARGE INSTRUCTIONS ---
Patient: MALCOM FREEMAN General Instructions [facility] VisitID: [id number] [place] [address] 26y, F Registration Date/Time: 03/24/2017 Vomiting with nausea, dehydration and volume depletion. Early, first trimester intrauterine . Withdrawal of medication complicated by . INSTRUCTIONS Drink plenty of fluids. (( Appt. made for pt with [facility] OB on [address] for April 01 at 0330) Please rotate of zofran/ reglan, take one then the other in 4 hours to best regulate your symptoms, in addition may take benadryl every 6 hours to help with your symptoms. I would also strongly urge you to take Tylenol for any pains you may have. Maintain a primarily liquid diet). Warnings: Further evaluation is necessary. Prescription Medications: Zofran (orally disintegrating tablets) 4 mg: take 1 orally every 8 hours for 3 days as needed for nausea. Dispense fifteen (15). No refill. Substitution is permissible. Reglan 10 mg tablets: take 1 orally every 8 hours for 3 days as needed for nausea or vomiting. Dispense fifteen (15). No refills. OTC Medications: Take acetaminophen (Tylenol, Datril, etc.) and Benadryl according to label instructions. Available over the counter. Follow-up: Follow up with an supervisor stitching department. Understanding of the discharge instructions verbalized by patient. ADDITIONAL INFORMATION Vomiting [6Yr-Adult] Vomiting is a common symptom that may be due to different causes. These include gastroenteritis ("stomach flu"), food poisoning and gastritis. There are other more serious causes of vomiting which may be hard to diagnose early in the illness. Therefore, it is important to watch for the warning signs listed below. The main danger from repeated vomiting is dehydration. This is due to excess loss of water and minerals from the body. When this occurs, body fluids must be replaced. Home Care: If symptoms are severe, rest at home for the next 24 hours. You may use acetaminophen (Tylenol) or ibuprofen (Motrin, Advil) to control fever, unless another medicine was prescribed. [NOTE : If you have chronic liver or kidney disease or ever had a stomach ulcer or GI bleeding, talk with your doctor before using these medicines.] (Aspirin should never be used in anyone under 18 years of age who is ill with a fever. It may cause severe liver damage.) Avoid tobacco and alcohol use, which may worsen your symptoms. If medicines for vomiting were prescribed, take as directed. Once vomiting stops, then follow these guidelines: During The First 12-24 Hours follow the diet below: FRUIT JUICES: Apple, grape juice, clear fruit drinks, and electrolyte replacement drinks. BEVERAGES: Soft drinks without caffeine; mineral water (plain or flavored), decaffeinated tea and coffee. SOUPS: Clear broth, consomm and bouillon DESSERTS: Plain gelatin, popsicles and fruit juice bars. As you feel better, you may add 6-8 ounces of yogurt per day. During The Next 24 Hours you may add the following to the above: Hot cereal, plain toast, bread, rolls, crackers Plain noodles, rice, mashed potatoes, chicken noodle or rice soup Unsweetened canned fruit (avoid pineapple), bananas Limit caffeine and chocolate. No spices or seasonings except salt. During The Next 24 Hours Gradually resume a normal diet, as you feel better and your symptoms lessen. Follow Up with your doctor as advised if you are not improving over the next 2-3 days. Get Prompt Medical Attention if any of the following occur: Constant right-sided lower abdominal pain or increasing general abdominal pain Continued vomiting (unable to keep liquids down) for 24 hours Frequent diarrhea (more than 5 times a day); blood (red or black color) or mucus in diarrhea Reduced urine output or extreme thirst Weakness, dizziness or fainting Unusually drowsy or confused Fever of 100.4F (38C) oral or higher, not better with fever medication Yellow color of the eyes or skin [place] Diet A bland diet is used for patients with an upset stomach. It consists of foods that are mild and easy to digest. It is better to eat small frequent meals rather than three large meals a day. BEVERAGES OK: Fruit juices, non-caffeinated teas and coffee, non-carbonated laughlin AVOID: Carbonated beverage, caffeinated tea and coffee, all alcoholic beverages BREAD OK: Refined white, wheat or rye bread, mikel or soda crackers, [place] toast, plain rolls, bagels AVOID: Whole-grain bread CEREAL OK: Refined cereals: cooked or ready to eat AVOID: Whole grain cereals and granola, or those containing bran, seeds or nuts DESSERTS OK: Peanut butter and all others except those to "avoid" AVOID: Chocolate, cocoa, coconut, popcorn, nuts, seeds, jam, marmalade FRUITS OK: Canned, cooked, frozen or fresh fruits without seeds or tough skin AVOID: Olives, skin and seeds of fruit MEATS OK: All fresh or preserved meat, fish and fowl AVOID: Any that are prepared with those spices to "avoid" CHEESE & EGGS OK: Eggs, cottage cheese, cream cheese, other cheeses AVOID: All cheeses made with those spices to "avoid" POTATOES & PASTA OK: Potato, rice, macaroni, noodles, spaghetti AVOID: None SOUPS OK: All soups without heavy seasoning AVOID: Soups made with those spices to "avoid" VEGETABLES OK: Canned, cooked, fresh or frozen mildly flavored vegetables without seeds, skins or coarse fiber AVOID: Vegetables prepared with those spices to "avoid"; skin and seeds of vegetables and those with coarse fiber SPICES OK: Salt, lemon and [place] juice, vinegar, all extracts, yoshi, cinnamon, thyme, mace, allspice, paprika AVOID: [place] powder, cloves, pepper, seed spices, garlic, gravy pickles, highly seasoned salad dressings Clear Liquid Diet Clear liquids are any liquid that you can see through as well as those that are very easy to digest. This is used while the body is recovering from irritation or infection of the stomach or intestinal tract. It may also be used before special procedures or surgery. This diet is to be used no more than three days. You may include the following items. Adults Adults should drink a total of 23 quarts of liquid per day. It may be easier to drink small frequent servings rather than a few large ones. Liquids can include: Fruit juices.Strained orange juice or lemonade (no pulp), apple, grape and cranberry juice, clear fruit drinks, sports drinks Beverages.Sport drinks, sodas, mineral water (plain or flavored), tea, black coffee, liquid gelatin (add twice the recommended amount of water) Soups.Clear broth, consomm, bouillon Desserts.Plain gelatin, popsicles, fruit juice bars Children Over 2 years old The following liquids are acceptable for children over age 2: Fruit juices.Strained orange juice or lemonade (no pulp), apple, grape and cranberry juice, clear fruit drinks Beverages. Sports drinks, sodas, mineral water (plain or flavored), tea, liquid gelatin (add twice the recommended amount of water) Soups. Clear broth, consomm, bouillon Desserts. Plain gelatin, popsicles, fruit juice bars Children under 2 years old Oral rehydration fluids such are available at drug stores and most grocery stores without a prescription. You have been given the following additional information: Vomiting (6Y-Adult) Diet, [place] (Adult) Diet, Clear Liquid (Electronically signed by Denisha Doty P.A.-C 03/24/2017 17:17)
--- NOTE | 2017-03-24 17:17 | ED MAR SUMMARY ---
..... Medication Administration Record [facility] [address] [place] [address] Patient: MALCOM FREEMAN Visit ID: [id number] 26y, F Weight: 99.7 kg Height/Length: 64 in BMI: 37.8 ALLERGIES: Latex Given 14:43 03/24/2017 Smith Hdz R.N. Medication Administered: REGLAN [IVP] (METOCLOPRAMIDE HCL), Dose: 10 mg IVP over 1 minute(s), Site: #1 right AC. Medication Ordered: Reglan IV 10 mg (NOW). Start 14:47 03/24/2017 Smith Hdz R.N., Stop 16:22 03/24/2017 Smith Hdz R.N. Medication Administered: IV NS (SALINE), Dose: IV Fluids over 1 hour(s), Rate: 1000 mL/hr, Dispensed: 1000 mL bag, Site: #1 right AC. Medication Ordered: IV NS : initial bolus 1000 mL (1000 mL/hr), then 1000 mL/hr for X1 (NOW); Tang. Given 15:53 03/24/2017 Smith Hdz R.N. Medication Administered: ZOFRAN [IVP] (ONDANSETRON HCL), Dose: 8 mg IVP over 1 minute(s), Site: #1 right AC. Medication Ordered: Zofran IV 8 mg (NOW). Given 15:54 03/24/2017 Smith Hdz R.N. Medication Administered: BENADRYL [IVP] (DIPHENHYDRAMINE HCL), Dose: 50 mg IVP over 1 minute(s), Site: #1 right AC. Medication Ordered: Benadryl IV 50 mg (NOW).
--- NOTE | 2017-03-24 17:17 | ED MAR SUMMARY ---
..... Medication Administration Record [facility] [address] [place] [address] Patient: MALCOM FREEMAN Visit ID: [id number] 26y, F Weight: 99.7 kg Height/Length: 64 in BMI: 37.8 ALLERGIES: Latex Given 14:43 03/24/2017 Smith Hdz R.N. Medication Administered: REGLAN [IVP] (METOCLOPRAMIDE HCL), Dose: 10 mg IVP over 1 minute(s), Site: #1 right AC. Medication Ordered: Reglan IV 10 mg (NOW). Start 14:47 03/24/2017 Smith Hdz R.N., Stop 16:22 03/24/2017 Smith Hdz R.N. Medication Administered: IV NS (SALINE), Dose: IV Fluids over 1 hour(s), Rate: 1000 mL/hr, Dispensed: 1000 mL bag, Site: #1 right AC. Medication Ordered: IV NS : initial bolus 1000 mL (1000 mL/hr), then 1000 mL/hr for X1 (NOW); Tang. Given 15:53 03/24/2017 Smith Hdz R.N. Medication Administered: ZOFRAN [IVP] (ONDANSETRON HCL), Dose: 8 mg IVP over 1 minute(s), Site: #1 right AC. Medication Ordered: Zofran IV 8 mg (NOW). Given 15:54 03/24/2017 Smith Hdz R.N. Medication Administered: BENADRYL [IVP] (DIPHENHYDRAMINE HCL), Dose: 50 mg IVP over 1 minute(s), Site: #1 right AC. Medication Ordered: Benadryl IV 50 mg (NOW).
--- NOTE | 2017-03-24 17:17 | ED MED RECONCILIATION SUMMARY ---
Patient: MALCOM FREEMAN Medication Reconciliation Report [facility] VisitID: [id number] [address] [place] [address] 26y, F Registration Date/Time: 03/24/2017 Weight: 99.7 kg Height/Length: 64 in. BMI: 37.8 ALLERGIES: Latex The patient's Home Medications are listed below: THE FOLLOWING MEDICATIONS NEED TO BE RECONCILED: VitB6 Zofran prn The source(s) of the original Home Medication information: patient The following Medications were given to the patient in the Emergency Department: Reglan [IVP] IVP 10 mg, administered: 03/24/2017 2:43:00 PM IV NS IV Fluids bolus 0, then 1000 mL/hr, administered: 03/24/2017 2:47:00 PM Zofran [IVP] IVP 8 mg, administered: 03/24/2017 3:53:00 PM Benadryl [IVP] IVP 50 mg, administered: 03/24/2017 3:54:00 PM The following Medications were prescribed to the patient: Take acetaminophen (Tylenol, Datril, etc.) and Benadryl according to label instructions. Available over the counter. -- Denisha Doty, P.A.-Lyndsay Zofran (orally disintegrating tablets) 4 mg: take 1 orally every 8 hours for 3 days as needed for nausea. Dispense fifteen (15). No refill. Substitution is permissible. -- Denisha Doty, P.A.-Lyndsay Reglan 10 mg tablets: take 1 orally every 8 hours for 3 days as needed for nausea or vomiting. Dispense fifteen (15). No refills. -- Deinsha Doty P.A.-Lyndsay
== END 2017-03-24 17:07 | disposition home or self-care (01) ==
LOC: ED SRH 14:03
DX: O9A.211 Injury, poisoning and certain other consequences of external causes complicating pregnancy, first trimester (principal); R11.2 Nausea with vomiting, unspecified; T43.215A Adverse effect of selective serotonin and norepinephrine reuptake inhibitors, initial encounter; E86.0 Dehydration; Z3A.09 9 weeks gestation of pregnancy; Z79.899 Other long term (current) drug therapy; Z91.040 Latex allergy status
CPT/HCPCS: 90004; 95059

== ENCOUNTER 2017-04-15 16:09 | Emergency (ER) | payer OTHER ==
--- NOTE | 2017-04-15 18:47 | ED NURSING NOTES ---
Clinical Report - Nurses [facility] [address] [place] [address] 04/15/2017 16:09 Patient: MALCOM FREEMAN TRIAGE Triage time 16:Apr 15 2017. Acuity: LEVEL 3. 16:14 04/15/17. 16:14 04/15/17. Alert. No acute distress. SEPSIS SCREEN: Sepsis Screen. Negative (no infection suspected/documented). --16:20 Guillermo Kim R.N. 16:14 04/15/17. BP: 139/60. HR: 101. RR: 16. O2 saturation: 100% on room air. Temp: 98.6 F (oral). Pain level now: 4/10. --16:20 Guillermo Kim R.N. Chief Complaint: ABDOMINAL PAIN. --19:12 Guillermo Kim R.N. Weight: 99.7 kg stated. Height/Length: 64 inches Per Patient. BMI: 37.8. --16:16 Guillermo Kim R.N. Medications Zofran prn . --16:18 Guillermo Kim R.N. Medication/allergy information source: the patient and patient's family. --16:20 Guillermo Kim R.N. Allergies Latex. --16:17 Guillermo Kim R.N. History Arrived by private vehicle. Historian: patient. Accompanied by family. Primary physician ([facility], [facility]). 16:14 04/15/17. This started last night. 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 PAST MEDICAL HX: Immunizations: up-to-date. Last normal menstrual period- Dec. Currently . SOCIAL HX: Never smoker. No alcohol use or drug use. No recent travel. She has had contact with a sick individual. No infectious disease exposure. ABUSE ASSESSMENT: No report of abuse. FALL RISK ASSESSMENT: Fall risk assessment completed. No fall risk identified. NUTRITIONAL RISK ASSESSMENT: The nutritional risk assessment revealed no deficiencies. FUNCTIONAL ASSESSMENT: Functional assessment: no impairments noted. LEARNING NEEDS ASSESSMENT: The learning needs assessment revealed no barriers. SKIN INTEGRITY ASSESSMENT: Skin integrity risk assessment completed. No skin integrity risk identified. --16:20 Guillermo Kim R.N. PROBLEMS: Intrauterine . Vomiting. Depressive disorder . Fibromyalgia. --16:18 Guillermo Kim R.N. Borderline personality disorder. PTSD. Ulcerative Colitis. --16:18 Guillermo Kim R.N. ADDITIONAL SURGERIES: Carpal Tunnel Surgery. --16:18 Guillermo Kim R.N. Assessment 16:14 04/15/17. --16:20 Guillermo Kim R.N. Interventions 16:14 04/15/17. 16:14 04/15/17. ID and allergy band on patient. To treatment room. --16:20 Guillermo Kim R.N. PHYSICAL ASSESSMENT 16:16 04/15/17. Ambulatory to room. GENERAL / NEURO / PSYCH: Alert. Oriented X 4. RESPIRATORY: Respirations not labored. CVS: Capillary refill less than 2 seconds. SKIN: Skin is warm and dry. --16:16 Guillermo Kim R.N. NURSING PROGRESS NOTES 16:16 04/15/17. The plan of care for this patient has been created. Patient gowned. Head of bed elevated. Reassurance given. Two patient identifiers checked. Call light placed in reach. Side rails up x 2. Bed placed in lowest position. Brakes of bed on. --16:16 Guillermo Kim R.N. 16:16 04/15/17. Patient ready for evaluation- chart flagged and notification provided. --16:16 Guillermo Kim R.N. 16:55 04/15/2017 Site #1 started via IV in the right wrist with an 22g angiocath, with aseptic technique and good blood return; two attempts. Blood drawn: rainbow set. Labeled in the presence of the patient and sent to the lab. Saline lock flushed with 10 mL saline. --16:56 Guillermo Kim R.N. 16:56 04/15/2017 Started bag #1 1000 mL IV Fluids IV NS (Saline); at 1000 mL/hr over 1 hour(s) via site #1. Allergies verified and confirmed 5 rights. IV patency established. IV site checked: no pain, redness, or swelling. IV flushed thoroughly pre- and post-medication administration. Completed per protocol. --16:56 Guillermo Kim R.N. 16:56 04/15/2017 Zofran (Ondansetron HCl) IVP 8 mg given over 2 minute(s) via site #1. Allergies verified and confirmed 5 rights. IV patency established. IV site checked: no pain, redness, or swelling. IV flushed thoroughly pre- and post-medication administration. IVP given by RN. --16:56 Guillermo Kim R.N. 17:18 04/15/17. Patient and family informed about reason for wait and about plan of care. --17:18 Guillermo Kim R.N. <<STRICKEN ENTRY-- 17:41 04/15/17. Cardiac rhythm: normal sinus rhythm. --17:41 Guillermo Kim R.N. --END STRIKE>> Charted On Wrong Patient --17:41 Guillermo Kim R.N. 18:04/15/17. BP: 110/48. HR: 84. RR: 14. O2 saturation: 100% on room air. --18:09 Guillermo Kim R.N. 18:09 04/15/17. --18:09 Guillermo Kim R.N. 18:04/15/17. Reassessment after medication administered. Overall patient status is the same- she states feels the same. GI / : The patient reports nausea. --18:09 Guillermo Kim R.N. 18:12 04/15/2017 Reglan (Metoclopramide HCl) IVP 10 mg given over 2 minute(s) via site #1. Allergies verified and confirmed 5 rights. IV patency established. IV site checked: no pain, redness, or swelling. IV flushed thoroughly pre- and post-medication administration. IVP given by RN. --18:22 Guillermo Kim R.N. 18:38 04/15/17. Patient and family informed about reason for wait and about plan of care. --18:38 Guillermo Kim R.N. ( For OB MD to call back). --18:38 Guillermo Kim R.N. 18:50. Reassessment after fluids administered and medication administered. She is calm and resting quietly. Overall patient status is improved- she states feels better. SKIN: Skin is warm and dry. --19:19 Camryn Garzon R.N. DISPOSITION / DISCHARGE 18:50 04/15/2017 Site #1 removed upon discharge. Catheter intact. Bandaid applied. --19:16 Camryn Garzon R.N. Departure time: 0. Condition at departure: improved and stable. No learning barriers present. Discharge instructions provided and reviewed with the patient. Reviewed medication(s). Prescription(s) given to the patient. Patient verbalized understanding. Written instructions provided in Mongolian. The patient was discharged home and accompanied by spouse. She left the Emergency Department ambulatory and via private vehicle. FALL RISK ASSESSMENT: Fall risk assessment completed. No fall risk identified. --19:17 Camryn Garzon R.N. 19:14 04/15/17. BP: 118/57. HR: 87. RR: 16. O2 saturation: 98%. Pain level now: 12/02. --19:17 Camryn Garzon R.N. Locked/Released at 04/15/2017 19:20 by Camryn Garzon R.N.
--- NOTE | 2017-04-15 18:47 | ED CLINICAL REPORT ---
Clinical Report - Physicians/Mid Levels [facility] [address] [place] [address] 04/15/2017 16:09 Patient: MALCOM FREEMAN Time Seen: 16:15. Arrived- By private vehicle. Historian- patient. HISTORY OF PRESENT ILLNESS Chief Complaint: VOMITING. This started about 6 weeks ago and is still present. It was gradual in onset and has been waxing/waning. The patient has had nausea and constipation. She has had vomiting. The vomiting has occurred numerous times. No blood-tinged emesis, coffee-grounds emesis or frankly bloody emesis. No severe vomiting. No diarrhea, black stools, bloody stools, abdominal pain or history of possible bad food exposure. No known contact with a sick individual. Has not recently been camping or on antibiotics. Last bowel movement: yesterday. REVIEW OF SYSTEMS Last normal menstrual period- 25 Dec 2016. 3. Para 1. Abortions 1. Currently . No chills, fever, sweats, calf pain or chest pain. No cough, difficulty breathing, pedal edema, palpitations or abdominal pain. No black stools, bloody stools, diarrhea or urinary problems. The patient has had constipation. All systems otherwise negative, except as recorded above. PAST HISTORY Ob - Sylwia LEIGH - John. Problems: Borderline personality disorder. PTSD. Ulcerative Colitis. Intrauterine . . Vomiting. Depressive disorder . Fibromyalgia. Additional Surgeries: Carpal Tunnel Surgery. Medications: Zofran prn . Allergies: Latex. SOCIAL HISTORY Never smoker. No alcohol use or drug use. FAMILY HISTORY No significant family medical history. ADDITIONAL NOTES The nursing notes have been reviewed. PHYSICAL EXAM Vital Signs: 04/15/2017 16:14 BP: 139/60. HR: 101. RR: 16. O2 saturation: 100%. Temp: 98.6 F. Pain level now: 4/10. Have been reviewed. Appearance: Alert. Eyes: Pupils equal, round and reactive to light. ENT: Pharynx normal. Neck: Normal inspection. Neck supple. CVS: Normal heart rate and rhythm. Heart sounds normal. Respiratory: No respiratory distress. Breath sounds normal. Abdomen: Soft and nontender. Gravid uterus. Bowel sounds normal. No organomegaly. No mass. Back: Normal inspection. No CVA tenderness. Skin: Skin warm and dry. Normal skin color. Normal skin turgor. Extremities: Extremities exhibit normal ROM. No calf tenderness. No lower extremity edema. LABS, X-RAYS, AND EKG Laboratory Tests: UA-Culture if indicated: (AUDIE: 04/15/2017 16:10) ( [facility] 04/15/2017 16:54) Final results Test Result Flag Units (Reference) URINE COLOR YELLOW URINE APPEARANCE CLEAR URINE GLUCOSE NEGATIVE (NEGATIVE) URINE BILIRUBIN NEGATIVE (NEGATIVE) URINE KETONE 3+ (NEGATIVE) URINE SPECIFIC GRAVITY 1.020 (1.010-1.030) URINE PH 7.0 (5.0-8.0) URINE PROTEIN TRACE (NEGATIVE) URINE UROBILINOGEN 0.2 EU/dL (0.2-1.0) URINE NITRITE NEGATIVE (NEGATIVE) URINE BLOOD NEGATIVE (NEGATIVE) URINE LEUK ESTERASE NEGATIVE (NEGATIVE) URINE RBC NONE SEEN rbc/hpf (0-1) URINE WBC 0-1 wbc/hpf (0-1) URINE EPITHELIAL CELLS 1-3 EPI/hpf (0-5) URINE BACTERIA TRACE (<1+) (NONE SEEN) URINE COMMENT CULT NOT INDICATED 1+ MUCUSURINE CULTURES ARE SET-UP BASED ON THE FOLLOWING CRITERIA:POSITIVE NITRITEPOSITIVE LEUKOCYTE ESTERASEGREATER THAN 10 WHITE BLOOD CELLSMODERATE (2+) OR GREATER BACTERIA CBC w Diff: (AUDIE: 04/15/2017 16:50) ( [facility] 04/15/2017 17:06) Final results Test Result Flag Units (Reference) WHITE BLOOD COUNT 13.3 H K/uL (4.5-11.5) RED BLOOD COUNT 5.01 M/uL (4.00-5.20) HEMOGLOBIN 12.2 gm/dL (12.0-16.0) HEMATOCRIT 37.8 % (36.0-46.0) MEAN CELL VOLUME 76 L fL (80-100) MEAN CORPUSCULAR HGB 24 L pg (26-34) MEAN CORPUSCULAR HGB CONC 32 g/dL (31-37) RED CELL DISTRIBUTION WIDTH 14.5 % (11.6-14.8) PLATELET COUNT 314 K/uL (150-400) NEUTROPHIL % 82.4 H % (50-75) LYMPH % 11.8 L % (25-40) MONO % 4.9 % (3-14) EOSINOPHIL % 0.6 % (0-4) BASOPHIL % 0.3 % (0-2) CMP: (AUDIE: 04/15/2017 16:50) ( MsgRcvd 04/15/2017 17:58) Final results Test Result Flag Units (Reference) GLUCOSE 89 mg/dL (70-110) BUN 8 mg/dL (7-18) CREATININE 0.7 mg/dL (0.6-1.3) Estimated GFR >60 mL/min Estimated GFR- >60 mL/min Note: Persistent reduction over 3 months in eGFR<60 mL/min/1.73 m2 defines CKD. Patients with eGFR values>=60 mL/min/1.73 m2 may also have CKD if evidence ofpersistent proteinuria. Additional information may be foundat www.kidney.org. SODIUM 140 mmol/L (136-145) POTASSIUM 3.6 mmol/L (3.5-5.1) CHLORIDE 103 mmol/L (98-107) CARBON DIOXIDE 23 mmol/L (21-32) CALCIUM 9.5 mg/dL (8.5-10.1) TOTAL PROTEIN 8.0 g/dL (6.4-8.2) ALBUMIN 3.5 g/dL (3.3-5.0) BILIRUBIN, TOTAL 0.3 mg/dL (0.0-1.0) ALKALINE PHOSPHATASE 76 U/L (46-116) AST (SGOT) 14 L U/L (15-37) ALT (SGPT) 21 U/L (12-78) LIPASE 118 U/L (73-393) AMYLASE 58 U/L (25-115) BETA HCG, QUANTITATIVE [id number] mIU/mL REFERENCE RANGE:Adult Males: <2 mIU/mLNon- Females: <6 mIU/mL Females:Approximate Approximate hCGGestational Age Range (mIU/mL) 0-1 week 0-501-2 weeks 40-3002-3 weeks 100-00315-4 weeks 500-41600-9 months 5,000-200,0002-3 months 10,000-100,0002nd trimester 3,000-50,0003rd trimester 1,000-50,000 . PROGRESS AND PROCEDURES Discussed case with health care provider (Zita Dao). Patient/family counseled. CLINICAL IMPRESSION Chronic ulcerative colitis. Moderate hyperemesis gravidarum less than 21 weeks with volume depletion and ketones. INSTRUCTIONS Drink plenty of fluids. Warnings: Further evaluation is necessary. GENERAL WARNINGS: Return or contact your physician immediately if your condition worsens or changes unexpectedly, if not improving as expected, or if other problems arise. Prescription Medications: Reglan 10 mg tablets: take 1 orally every 6 hours as needed for nausea or vomiting. Dispense fifteen (15). No refills. Substitution is permissible. Follow-up: Follow up with your doctor tomorrow as scheduled. Follow up with an resort host in two days. Call for the next available appointment. Understanding of the discharge instructions verbalized by patient and family. (Electronically signed by Camilo Farris MD 04/23/2017 2:21)
--- NOTE | 2017-04-15 18:47 | ED ORDER SUMMARY ---
..... Patient: MALCOM FREEMAN OrderSheet [facility] VisitID: [id number] [address] [place] [address] 26y, F Registration Date/Time: 04/15/2017 ORDER SHEET Weight: 99.7 kg (stated) Allergies: Latex GENERAL ORDERS: CBC w Diff Urgent (16:04/15/2017 Kulwinder VARGAS) (Ack 16:22 Tereos) (16:55 JBoardley R.N.) CMP Urgent (16:04/15/2017 Kulwinder VARGAS) (Ack 16:22 Tereso) (16:55 JBoardley R.N.) UA-Culture if indicated Urgent (16:04/15/2017 Kulwinder VARGAS) (Ack 16:22 Tereso) (16:43 JBoardley R.N.) Amylase Urgent (16:04/15/2017 Kulwinder VARGAS) (Ack 16:22 Tereso) (16:55 JBoardley R.N.) Lipase Urgent (16:04/15/2017 Kulwinder VARGAS) (Ack 16:22 Tereso) (16:55 JBoardley R.N.) Serum Quantitative Urgent (16:04/15/2017 Kulwinder VARGAS) (Ack 16:22 Tereso) (16:55 JBoardley R.N.) MEDICATION ORDERS: IV FLUIDS: IV NS : initial bolus 1000 mL (1000 mL/hr), then 150 mL/hr for 4h (NOW); Urgent (16:20 04/15/2017 Kulwinder VARGAS) (Ack 16:43 JBoardley R.N.) (16:56 JBoardley R.N.) Zofran IV 8 mg (NOW) (16:21 04/15/2017 Kulwinder VARGAS) (Ack 16:43 JBoardley R.N.) (16:56 JBoardley R.N.) Reglan IV 10 mg (NOW) (18:19 04/15/2017 Kulwinder VARGAS) (18:22 JBoardley R.N.) ORDER SHEET NOTES: [Electronically signed by Camryn Garzon R.N. (:04/15/2017)] [Electronically signed by Camilo Farris MD (02:21 04/23/2017)] [Electronically locked/signed by Camryn Garzon R.N. (:04/15/2017)]
--- NOTE | 2017-04-15 18:47 | ED ORDER SUMMARY ---
..... Patient: MALCOM FREEMAN OrderSheet [facility] VisitID: [id number] [address] [place] [address] 26y, F Registration Date/Time: 04/15/2017 ORDER SHEET Weight: 99.7 kg (stated) Allergies: Latex GENERAL ORDERS: CBC w Diff Urgent (16:04/15/2017 Kulwinder VARGAS) (Ack 16:22 Tereso) (16:55 JBoardley R.N.) CMP Urgent (16:04/15/2017 Kulwinder VARGAS) (Ack 16:22 Tereso) (16:55 JBoardley R.N.) UA-Culture if indicated Urgent (16:04/15/2017 Kulwinder VARGAS) (Ack 16:22 Tereso) (16:43 JBoardley R.N.) Amylase Urgent (16:04/15/2017 Kulwinder VARGAS) (Ack 16:22 Tereso) (16:55 JBoardley R.N.) Lipase Urgent (16:04/15/2017 Kulwinder VARGAS) (Ack 16:22 Tereso) (16:55 JBoardley R.N.) Serum Quantitative Urgent (16:04/15/2017 Kulwinder VARGAS) (Ack 16:22 Tereso) (16:55 JBoardley R.N.) MEDICATION ORDERS: IV FLUIDS: IV NS : initial bolus 1000 mL (1000 mL/hr), then 150 mL/hr for 4h (NOW); Urgent (16:20 04/15/2017 Kulwinder VARGAS) (Ack 16:43 JBoardley R.N.) (16:56 JBoardley R.N.) Zofran IV 8 mg (NOW) (16:21 04/15/2017 Kulwinder VARGAS) (Ack 16:43 JBoardley R.N.) (16:56 JBoardley R.N.) Reglan IV 10 mg (NOW) (18:19 04/15/2017 Kulwinder VARGAS) (18:22 JBoardley R.N.) ORDER SHEET NOTES: [Electronically signed by Camryn Garzon R.N. (:04/15/2017)] [Electronically signed by Camilo Farris MD (02:21 04/23/2017)] [Electronically locked/signed by Camryn Garzon R.N. (:04/15/2017)]
--- NOTE | 2017-04-15 18:47 | ED CLINICAL REPORT ---
Clinical Report - Physicians/Mid Levels [facility] [address] [place] [address] 04/15/2017 16:09 Patient: MALCOM FREEMAN Time Seen: 16:15. Arrived- By private vehicle. Historian- patient. HISTORY OF PRESENT ILLNESS Chief Complaint: VOMITING. This started about 6 weeks ago and is still present. It was gradual in onset and has been waxing/waning. The patient has had nausea and constipation. She has had vomiting. The vomiting has occurred numerous times. No blood-tinged emesis, coffee-grounds emesis or frankly bloody emesis. No severe vomiting. No diarrhea, black stools, bloody stools, abdominal pain or history of possible bad food exposure. No known contact with a sick individual. Has not recently been camping or on antibiotics. Last bowel movement: yesterday. REVIEW OF SYSTEMS Last normal menstrual period- 25 Dec 2016. 3. Para 1. Abortions 1. Currently . No chills, fever, sweats, calf pain or chest pain. No cough, difficulty breathing, pedal edema, palpitations or abdominal pain. No black stools, bloody stools, diarrhea or urinary problems. The patient has had constipation. All systems otherwise negative, except as recorded above. PAST HISTORY Ob - Sylwia LEIGH - John. Problems: Borderline personality disorder. PTSD. Ulcerative Colitis. Intrauterine . . Vomiting. Depressive disorder . Fibromyalgia. Additional Surgeries: Carpal Tunnel Surgery. Medications: Zofran prn . Allergies: Latex. SOCIAL HISTORY Never smoker. No alcohol use or drug use. FAMILY HISTORY No significant family medical history. ADDITIONAL NOTES The nursing notes have been reviewed. PHYSICAL EXAM Vital Signs: 04/15/2017 16:14 BP: 139/60. HR: 101. RR: 16. O2 saturation: 100%. Temp: 98.6 F. Pain level now: 4/10. Have been reviewed. Appearance: Alert. Eyes: Pupils equal, round and reactive to light. ENT: Pharynx normal. Neck: Normal inspection. Neck supple. CVS: Normal heart rate and rhythm. Heart sounds normal. Respiratory: No respiratory distress. Breath sounds normal. Abdomen: Soft and nontender. Gravid uterus. Bowel sounds normal. No organomegaly. No mass. Back: Normal inspection. No CVA tenderness. Skin: Skin warm and dry. Normal skin color. Normal skin turgor. Extremities: Extremities exhibit normal ROM. No calf tenderness. No lower extremity edema. LABS, X-RAYS, AND EKG Laboratory Tests: UA-Culture if indicated: (AUDIE: 04/15/2017 16:10) ( [facility] 04/15/2017 16:54) Final results Test Result Flag Units (Reference) URINE COLOR YELLOW URINE APPEARANCE CLEAR URINE GLUCOSE NEGATIVE (NEGATIVE) URINE BILIRUBIN NEGATIVE (NEGATIVE) URINE KETONE 3+ (NEGATIVE) URINE SPECIFIC GRAVITY 1.020 (1.010-1.030) URINE PH 7.0 (5.0-8.0) URINE PROTEIN TRACE (NEGATIVE) URINE UROBILINOGEN 0.2 EU/dL (0.2-1.0) URINE NITRITE NEGATIVE (NEGATIVE) URINE BLOOD NEGATIVE (NEGATIVE) URINE LEUK ESTERASE NEGATIVE (NEGATIVE) URINE RBC NONE SEEN rbc/hpf (0-1) URINE WBC 0-1 wbc/hpf (0-1) URINE EPITHELIAL CELLS 1-3 EPI/hpf (0-5) URINE BACTERIA TRACE (<1+) (NONE SEEN) URINE COMMENT CULT NOT INDICATED 1+ MUCUSURINE CULTURES ARE SET-UP BASED ON THE FOLLOWING CRITERIA:POSITIVE NITRITEPOSITIVE LEUKOCYTE ESTERASEGREATER THAN 10 WHITE BLOOD CELLSMODERATE (2+) OR GREATER BACTERIA CBC w Diff: (AUDIE: 04/15/2017 16:50) ( [facility] 04/15/2017 17:06) Final results Test Result Flag Units (Reference) WHITE BLOOD COUNT 13.3 H K/uL (4.5-11.5) RED BLOOD COUNT 5.01 M/uL (4.00-5.20) HEMOGLOBIN 12.2 gm/dL (12.0-16.0) HEMATOCRIT 37.8 % (36.0-46.0) MEAN CELL VOLUME 76 L fL (80-100) MEAN CORPUSCULAR HGB 24 L pg (26-34) MEAN CORPUSCULAR HGB CONC 32 g/dL (31-37) RED CELL DISTRIBUTION WIDTH 14.5 % (11.6-14.8) PLATELET COUNT 314 K/uL (150-400) NEUTROPHIL % 82.4 H % (50-75) LYMPH % 11.8 L % (25-40) MONO % 4.9 % (3-14) EOSINOPHIL % 0.6 % (0-4) BASOPHIL % 0.3 % (0-2) CMP: (AUDIE: 04/15/2017 16:50) ( MsgRcvd 04/15/2017 17:58) Final results Test Result Flag Units (Reference) GLUCOSE 89 mg/dL (70-110) BUN 8 mg/dL (7-18) CREATININE 0.7 mg/dL (0.6-1.3) Estimated GFR >60 mL/min Estimated GFR- >60 mL/min Note: Persistent reduction over 3 months in eGFR<60 mL/min/1.73 m2 defines CKD. Patients with eGFR values>=60 mL/min/1.73 m2 may also have CKD if evidence ofpersistent proteinuria. Additional information may be foundat www.kidney.org. SODIUM 140 mmol/L (136-145) POTASSIUM 3.6 mmol/L (3.5-5.1) CHLORIDE 103 mmol/L (98-107) CARBON DIOXIDE 23 mmol/L (21-32) CALCIUM 9.5 mg/dL (8.5-10.1) TOTAL PROTEIN 8.0 g/dL (6.4-8.2) ALBUMIN 3.5 g/dL (3.3-5.0) BILIRUBIN, TOTAL 0.3 mg/dL (0.0-1.0) ALKALINE PHOSPHATASE 76 U/L (46-116) AST (SGOT) 14 L U/L (15-37) ALT (SGPT) 21 U/L (12-78) LIPASE 118 U/L (73-393) AMYLASE 58 U/L (25-115) BETA HCG, QUANTITATIVE 469749 mIU/mL REFERENCE RANGE:Adult Males: <2 mIU/mLNon- Females: <6 mIU/mL Females:Approximate Approximate hCGGestational Age Range (mIU/mL) 0-1 week 0-501-2 weeks 40-3002-3 weeks 100-38458-2 weeks 500-95861-2 months 5,000-200,0002-3 months 10,000-100,0002nd trimester 3,000-50,0003rd trimester 1,000-50,000 . PROGRESS AND PROCEDURES Discussed case with health care provider (Zita Dao). Patient/family counseled. CLINICAL IMPRESSION Chronic ulcerative colitis. Moderate hyperemesis gravidarum less than 21 weeks with volume depletion and ketones. INSTRUCTIONS Drink plenty of fluids. Warnings: Further evaluation is necessary. GENERAL WARNINGS: Return or contact your physician immediately if your condition worsens or changes unexpectedly, if not improving as expected, or if other problems arise. Prescription Medications: Reglan 10 mg tablets: take 1 orally every 6 hours as needed for nausea or vomiting. Dispense fifteen (15). No refills. Substitution is permissible. Follow-up: Follow up with your doctor tomorrow as scheduled. Follow up with an telephone surveyor in two days. Call for the next available appointment. Understanding of the discharge instructions verbalized by patient and family. (Electronically signed by Camilo Farris MD 04/23/2017 2:21)
--- NOTE | 2017-04-23 02:21 | ED MED RECONCILIATION SUMMARY ---
Patient: MALCOM FREEMAN Medication Reconciliation Report [facility] VisitID: [id number] [address] [place] [address] 26y, F Registration Date/Time: 04/15/2017 Weight: 99.7 kg Height/Length: 64 in. BMI: 37.8 ALLERGIES: Latex The patient's Home Medications are listed below: THE FOLLOWING MEDICATIONS NEED TO BE RECONCILED: Zofran prn The source(s) of the original Home Medication information: patient's family member patient The following Medications were given to the patient in the Emergency Department: IV NS IV Fluids bolus 0, then 1000 mL/hr, administered: 04/15/2017 4:56:00 PM Zofran [IVP] IVP 8 mg, administered: 04/15/2017 4:56:00 PM Reglan [IVP] IVP 10 mg, administered: 04/15/2017 6:12:00 PM The following Medications were prescribed to the patient: Reglan 10 mg tablets: take 1 orally every 6 hours as needed for nausea or vomiting. Dispense fifteen (15). No refills. Substitution is permissible. -- Camilo Farris MD
--- NOTE | 2017-04-23 02:21 | ED MAR SUMMARY ---
..... Medication Administration Record [facility] [address] [place] [address] Patient: MALCOM FREEMAN Visit ID: [id number] 26y, F Weight: 99.7 kg Height/Length: 64 in BMI: 37.8 ALLERGIES: Latex Start 16:56 04/15/2017 Guillermo Kim R.N. Medication Administered: IV NS (SALINE), Dose: IV Fluids over 1 hour(s), Rate: 1000 mL/hr, Dispensed: 1000 mL bag, Site: #1 right wrist. Medication Ordered: IV NS : initial bolus 1000 mL (1000 mL/hr), then 150 mL/hr for 4h (NOW); Urgent. Given 16:56 04/15/2017 Guillermo Kim R.N. Medication Administered: ZOFRAN [IVP] (ONDANSETRON HCL), Dose: 8 mg IVP over 2 minute(s), Site: #1 right wrist. Medication Ordered: Zofran IV 8 mg (NOW). Given 18:12 04/15/2017 Guillermo Kim R.N. Medication Administered: REGLAN [IVP] (METOCLOPRAMIDE HCL), Dose: 10 mg IVP over 2 minute(s), Site: #1 right wrist. Medication Ordered: Reglan IV 10 mg (NOW).
--- NOTE | 2017-04-23 02:21 | ED DISCHARGE INSTRUCTIONS ---
Patient: MALCOM FREEMAN General Instructions [facility] VisitID: [id number] [address] [place] [address] 26y, F Registration Date/Time: 04/15/2017 Chronic ulcerative colitis. Moderate hyperemesis gravidarum less than 21 weeks with volume depletion and ketones. INSTRUCTIONS Drink plenty of fluids. Warnings: Further evaluation is necessary. GENERAL WARNINGS: Return or contact your physician immediately if your condition worsens or changes unexpectedly, if not improving as expected, or if other problems arise. Prescription Medications: Reglan 10 mg tablets: take 1 orally every 6 hours as needed for nausea or vomiting. Dispense fifteen (15). No refills. Substitution is permissible. Follow-up: Follow up with your doctor tomorrow as scheduled. Follow up with an director of slot operations in two days. Call for the next available appointment. Understanding of the discharge instructions verbalized by patient and family. ADDITIONAL INFORMATION Ulcerative Colitis You have been diagnosed with ulcerative colitis. Ulcerative colitis is inflammation that occurs in the rectum and colon. It is a form of Inflammatory Bowel Disease (IBD). No one knows what causes IBD, but the symptoms can be treated and people with IBD can lead full, active lives. Home Care: Follow the diet that was prescribed for you by your doctor. Avoid any foods that make your symptoms worse. These foods vary from person to person. Keep a diary of foods that disagree with you, and share this information with your doctor or vision teacher. Take your medications as directed. Follow Up with your doctor or as advised by our staff. Report any unintended weight loss over 10 pounds over 3-6 months to your doctor. Get Prompt Medical Attention if any of the following occur: Bleeding from your rectum Frequent diarrhea or abdominal pain not controlled by your medicine Bloody diarrhea Fever of 100.4F (38C) or higher, or as directed by your healthcare provider Persistent nausea or repeated vomiting Hyperemesis Of Hyperemesis of is a severe form of "morning sickness", where the vomiting is excessive and may cause dehydration and chemical imbalances in the body. It occurs in about 1% of pregnancies, and is usually worse during the 10-12th week of . It gets better by the 16th week. Its cause is not well understood, but may be related to rising hormone levels early in the . It can be a serious threat to mother and fetus if dehydration becomes severe. Therefore, follow the advice below carefully. If symptoms are severe and not controlled by home measures, intravenous fluids and admission to the hospital may be needed. Home Care: 1) Activity a. After awakening from sleep, remain in bed for 15 minutes before getting up. 2) Diet a. Eat frequent small meals rather than 3 large meals. b. A diet high in carbohydrates (starches) and fiber is best. Avoid greasy or spicy foods. c. If you are having trouble keeping down solid foods, drink frequent, small amounts of liquids with electrolytes, such as broth or sports drinks. If nausea and vomiting continue, rest your stomach by waiting 1-2 hours before trying to drink again. d. Keep a log of the foods you eat and how they affect your symptoms. Avoid foods that trigger your symptoms. e. Keep Saltine crackers at the bedside. If you are nauseated upon awakening, eat some crackers or dry toast before getting out of bed. 3) Medicine a. In general, it is best to avoid strong medicines during , especially during the first three months. The effect on the growing baby is not always known and these could cause harm. Your doctor will recommend a prescription medicine only when the symptoms you are having (vomiting and dehydration) are more dangerous to the baby than the small risk of using the medicine. b. Taking Vitamin B6 (pyridoxine), 10-25 mg daily is safe and may be helpful to reduce nausea. c. Check with your doctor before taking any other lobu-zli-bbvnkxt or herbal medicines during your . Follow Up: With your doctor within the next few days or as instructed by this facility. Get Prompt Medical Attention if any of the following occur: -- Unable to keep any clear liquids down over a six-hour period -- Worsening weakness, dizziness or fainting occurs -- No weight gain over a two-week period -- Severe constant lower right abdominal pain -- Fever, chills or frequent diarrhea Metoclopramide Hydrochloride Oral tablet What is this medicine? METOCLOPRAMIDE (met oh kloe PRA mide) is used to treat the symptoms of gastroesophageal reflux disease (GERD) like heartburn. It is also used to treat people with slow emptying of the stomach and intestinal tract. How should I use this medicine? Take this medicine by mouth with a glass of water. Follow the directions on the prescription label. Take this medicine on an empty stomach, about 30 minutes before eating. Take your doses at regular intervals. Do not take your medicine more often than directed. Do not stop taking except on the advice of your doctor or health daycare assistant. A special MedGuide will be given to you by the pharmacist with each prescription and refill. Be sure to read this information carefully each time. Talk to your pediatrician/medical doctor regarding the use of this medicine in children. Special care may be needed. What side effects may I notice from receiving this medicine? Side effects that you should report to your doctor or health daycare assistant as soon as possible: allergic reactions like skin rash, itching or hives, swelling of the face, lips, or tongue abnormal production of milk in females breast enlargement in both males and females change in the way you walk difficulty moving, speaking or swallowing drooling, lip smacking, or rapid movements of the tongue excessive sweating fever involuntary or uncontrollable movements of the eyes, head, arms and legs irregular heartbeat or palpitations muscle twitches and spasms unusually weak or tired Side effects that usually do not require medical attention (report to your doctor or health daycare assistant if they continue or are bothersome): change in sex drive or performance depressed mood diarrhea difficulty sleeping headache menstrual changes restless or nervous What may interact with this medicine? acetaminophen cyclosporine digoxin medicines for blood pressure medicines for diabetes, including insulin medicines for hay fever and other allergies medicines for depression, especially an Monoamine Oxidase Inhibitor (MAOI) medicines for Parkinson's disease, like levodopa medicines for sleep or for pain tetracycline What if I miss a dose? If you miss a dose, take it as soon as you can. If it is almost time for your next dose, take only that dose. Do not take double or extra doses. Where should I keep my medicine? Keep out of the reach of children. Store at room temperature between 20 and 25 degrees C (68 and 77 degrees F). Protect from light. Keep container tightly closed. Throw away any unused medicine after the expiration date. What should I tell my health care provider before I take this medicine? They need to know if you have any of these conditions: breast cancer depression diabetes heart failure high blood pressure kidney disease liver disease Parkinson's disease or a movement disorder pheochromocytoma seizures stomach obstruction, bleeding, or perforation an unusual or allergic reaction to metoclopramide, procainamide, sulfites, other medicines, foods, dyes, or preservatives or trying to get breast-feeding What should I watch for while using this medicine? It may take a few weeks for your stomach condition to start to get better. However, do not take this medicine for longer than 12 weeks. The longer you take this medicine, and the more you take it, the greater your chances are of developing serious side effects. If you are an elderly patient, a female patient, or you have diabetes, you may be at an increased risk for side effects from this medicine. Contact your doctor immediately if you start having movements you cannot control such as lip smacking, rapid movements of the tongue, involuntary or uncontrollable movements of the eyes, head, arms and legs, or muscle twitches and spasms. Patients and their families should watch out for worsening depression or thoughts of suicide. Also watch out for any sudden or severe changes in feelings such as feeling anxious, agitated, panicky, irritable, hostile, aggressive, impulsive, severely restless, overly excited and hyperactive, or not being able to sleep. If this happens, especially at the beginning of treatment or after a change in dose, call your doctor. Do not treat yourself for high fever. Ask your doctor or health daycare assistant for advice. You may get drowsy or dizzy. Do not drive, use machinery, or do anything that needs mental alertness until you know how this drug affects you. Do not stand or sit up quickly, especially if you are an older patient. This reduces the risk of dizzy or fainting spells. Alcohol can make you more drowsy and dizzy. Avoid alcoholic drinks. You have been given the following additional information: Ulcerative Colitis Hyperemesis Gravidarum Metoclopramide Hydrochloride Oral tablet (Electronically signed by Camilo Farris MD 04/23/2017 2:21)
--- NOTE | 2017-04-23 02:21 | ED DISCHARGE INSTRUCTIONS ---
Patient: MALCOM FREEMAN General Instructions [facility] VisitID: [id number] [address] [place] [address] 26y, F Registration Date/Time: 04/15/2017 Chronic ulcerative colitis. Moderate hyperemesis gravidarum less than 21 weeks with volume depletion and ketones. INSTRUCTIONS Drink plenty of fluids. Warnings: Further evaluation is necessary. GENERAL WARNINGS: Return or contact your physician immediately if your condition worsens or changes unexpectedly, if not improving as expected, or if other problems arise. Prescription Medications: Reglan 10 mg tablets: take 1 orally every 6 hours as needed for nausea or vomiting. Dispense fifteen (15). No refills. Substitution is permissible. Follow-up: Follow up with your doctor tomorrow as scheduled. Follow up with an handbook writer in two days. Call for the next available appointment. Understanding of the discharge instructions verbalized by patient and family. ADDITIONAL INFORMATION Ulcerative Colitis You have been diagnosed with ulcerative colitis. Ulcerative colitis is inflammation that occurs in the rectum and colon. It is a form of Inflammatory Bowel Disease (IBD). No one knows what causes IBD, but the symptoms can be treated and people with IBD can lead full, active lives. Home Care: Follow the diet that was prescribed for you by your doctor. Avoid any foods that make your symptoms worse. These foods vary from person to person. Keep a diary of foods that disagree with you, and share this information with your doctor or slot machine key person. Take your medications as directed. Follow Up with your doctor or as advised by our staff. Report any unintended weight loss over 10 pounds over 3-6 months to your doctor. Get Prompt Medical Attention if any of the following occur: Bleeding from your rectum Frequent diarrhea or abdominal pain not controlled by your medicine Bloody diarrhea Fever of 100.4F (38C) or higher, or as directed by your healthcare provider Persistent nausea or repeated vomiting Hyperemesis Of Hyperemesis of is a severe form of "morning sickness", where the vomiting is excessive and may cause dehydration and chemical imbalances in the body. It occurs in about 1% of pregnancies, and is usually worse during the 10-12th week of . It gets better by the 16th week. Its cause is not well understood, but may be related to rising hormone levels early in the . It can be a serious threat to mother and fetus if dehydration becomes severe. Therefore, follow the advice below carefully. If symptoms are severe and not controlled by home measures, intravenous fluids and admission to the hospital may be needed. Home Care: 1) Activity a. After awakening from sleep, remain in bed for 15 minutes before getting up. 2) Diet a. Eat frequent small meals rather than 3 large meals. b. A diet high in carbohydrates (starches) and fiber is best. Avoid greasy or spicy foods. c. If you are having trouble keeping down solid foods, drink frequent, small amounts of liquids with electrolytes, such as broth or sports drinks. If nausea and vomiting continue, rest your stomach by waiting 1-2 hours before trying to drink again. d. Keep a log of the foods you eat and how they affect your symptoms. Avoid foods that trigger your symptoms. e. Keep Saltine crackers at the bedside. If you are nauseated upon awakening, eat some crackers or dry toast before getting out of bed. 3) Medicine a. In general, it is best to avoid strong medicines during , especially during the first three months. The effect on the growing baby is not always known and these could cause harm. Your doctor will recommend a prescription medicine only when the symptoms you are having (vomiting and dehydration) are more dangerous to the baby than the small risk of using the medicine. b. Taking Vitamin B6 (pyridoxine), 10-25 mg daily is safe and may be helpful to reduce nausea. c. Check with your doctor before taking any other bjro-ydq-lafyrzb or herbal medicines during your . Follow Up: With your doctor within the next few days or as instructed by this facility. Get Prompt Medical Attention if any of the following occur: -- Unable to keep any clear liquids down over a six-hour period -- Worsening weakness, dizziness or fainting occurs -- No weight gain over a two-week period -- Severe constant lower right abdominal pain -- Fever, chills or frequent diarrhea Metoclopramide Hydrochloride Oral tablet What is this medicine? METOCLOPRAMIDE (met oh kloe PRA mide) is used to treat the symptoms of gastroesophageal reflux disease (GERD) like heartburn. It is also used to treat people with slow emptying of the stomach and intestinal tract. How should I use this medicine? Take this medicine by mouth with a glass of water. Follow the directions on the prescription label. Take this medicine on an empty stomach, about 30 minutes before eating. Take your doses at regular intervals. Do not take your medicine more often than directed. Do not stop taking except on the advice of your doctor or health care transition coordinator. A special MedGuide will be given to you by the pharmacist with each prescription and refill. Be sure to read this information carefully each time. Talk to your tester sound regarding the use of this medicine in children. Special care may be needed. What side effects may I notice from receiving this medicine? Side effects that you should report to your doctor or health care transition coordinator as soon as possible: allergic reactions like skin rash, itching or hives, swelling of the face, lips, or tongue abnormal production of milk in females breast enlargement in both males and females change in the way you walk difficulty moving, speaking or swallowing drooling, lip smacking, or rapid movements of the tongue excessive sweating fever involuntary or uncontrollable movements of the eyes, head, arms and legs irregular heartbeat or palpitations muscle twitches and spasms unusually weak or tired Side effects that usually do not require medical attention (report to your doctor or health care transition coordinator if they continue or are bothersome): change in sex drive or performance depressed mood diarrhea difficulty sleeping headache menstrual changes restless or nervous What may interact with this medicine? acetaminophen cyclosporine digoxin medicines for blood pressure medicines for diabetes, including insulin medicines for hay fever and other allergies medicines for depression, especially an Monoamine Oxidase Inhibitor (MAOI) medicines for Parkinson's disease, like levodopa medicines for sleep or for pain tetracycline What if I miss a dose? If you miss a dose, take it as soon as you can. If it is almost time for your next dose, take only that dose. Do not take double or extra doses. Where should I keep my medicine? Keep out of the reach of children. Store at room temperature between 20 and 25 degrees C (68 and 77 degrees F). Protect from light. Keep container tightly closed. Throw away any unused medicine after the expiration date. What should I tell my health care provider before I take this medicine? They need to know if you have any of these conditions: breast cancer depression diabetes heart failure high blood pressure kidney disease liver disease Parkinson's disease or a movement disorder pheochromocytoma seizures stomach obstruction, bleeding, or perforation an unusual or allergic reaction to metoclopramide, procainamide, sulfites, other medicines, foods, dyes, or preservatives or trying to get breast-feeding What should I watch for while using this medicine? It may take a few weeks for your stomach condition to start to get better. However, do not take this medicine for longer than 12 weeks. The longer you take this medicine, and the more you take it, the greater your chances are of developing serious side effects. If you are an elderly patient, a female patient, or you have diabetes, you may be at an increased risk for side effects from this medicine. Contact your doctor immediately if you start having movements you cannot control such as lip smacking, rapid movements of the tongue, involuntary or uncontrollable movements of the eyes, head, arms and legs, or muscle twitches and spasms. Patients and their families should watch out for worsening depression or thoughts of suicide. Also watch out for any sudden or severe changes in feelings such as feeling anxious, agitated, panicky, irritable, hostile, aggressive, impulsive, severely restless, overly excited and hyperactive, or not being able to sleep. If this happens, especially at the beginning of treatment or after a change in dose, call your doctor. Do not treat yourself for high fever. Ask your doctor or health care transition coordinator for advice. You may get drowsy or dizzy. Do not drive, use machinery, or do anything that needs mental alertness until you know how this drug affects you. Do not stand or sit up quickly, especially if you are an older patient. This reduces the risk of dizzy or fainting spells. Alcohol can make you more drowsy and dizzy. Avoid alcoholic drinks. You have been given the following additional information: Ulcerative Colitis Hyperemesis Gravidarum Metoclopramide Hydrochloride Oral tablet (Electronically signed by Camilo Farris MD 04/23/2017 2:21)
--- NOTE | 2017-04-23 02:21 | ED MAR SUMMARY ---
..... Medication Administration Record [facility] [address] [place] [address] Patient: MALCOM FREEMAN Visit ID: [id number] 26y, F Weight: 99.7 kg Height/Length: 64 in BMI: 37.8 ALLERGIES: Latex Start 16:56 04/15/2017 Guillermo Kim R.N. Medication Administered: IV NS (SALINE), Dose: IV Fluids over 1 hour(s), Rate: 1000 mL/hr, Dispensed: 1000 mL bag, Site: #1 right wrist. Medication Ordered: IV NS : initial bolus 1000 mL (1000 mL/hr), then 150 mL/hr for 4h (NOW); Urgent. Given 16:56 04/15/2017 Guillermo Kim R.N. Medication Administered: ZOFRAN [IVP] (ONDANSETRON HCL), Dose: 8 mg IVP over 2 minute(s), Site: #1 right wrist. Medication Ordered: Zofran IV 8 mg (NOW). Given 18:12 04/15/2017 Guillermo Kim R.N. Medication Administered: REGLAN [IVP] (METOCLOPRAMIDE HCL), Dose: 10 mg IVP over 2 minute(s), Site: #1 right wrist. Medication Ordered: Reglan IV 10 mg (NOW).
--- NOTE | 2017-04-23 02:21 | ED MED RECONCILIATION SUMMARY ---
Patient: MALCOM FREEMAN Medication Reconciliation Report [facility] VisitID: [id number] [address] [place] [address] 26y, F Registration Date/Time: 04/15/2017 Weight: 99.7 kg Height/Length: 64 in. BMI: 37.8 ALLERGIES: Latex The patient's Home Medications are listed below: THE FOLLOWING MEDICATIONS NEED TO BE RECONCILED: Zofran prn The source(s) of the original Home Medication information: patient's family member patient The following Medications were given to the patient in the Emergency Department: IV NS IV Fluids bolus 0, then 1000 mL/hr, administered: 04/15/2017 4:56:00 PM Zofran [IVP] IVP 8 mg, administered: 04/15/2017 4:56:00 PM Reglan [IVP] IVP 10 mg, administered: 04/15/2017 6:12:00 PM The following Medications were prescribed to the patient: Reglan 10 mg tablets: take 1 orally every 6 hours as needed for nausea or vomiting. Dispense fifteen (15). No refills. Substitution is permissible. -- Camilo Farris MD
== END 2017-04-15 18:50 | disposition home or self-care (01) ==
LOC: ED SRH 16:09
DX: O99.612 Diseases of the digestive system complicating pregnancy, second trimester (principal); K51.90 Ulcerative colitis, unspecified, without complications; O21.1 Hyperemesis gravidarum with metabolic disturbance; Z3A.00 Weeks of gestation of pregnancy not specified; Z91.040 Latex allergy status
CPT/HCPCS: 90004; 90100; 90197; 92235; 92530; 95059